=== PATIENT | female | born 1975 | race Two or more races ===

== ENCOUNTER 2021-04-17 10:29 | Outpatient (REF) | payer MEDICAID, OTHER, SELFPAY | END 2021-04-17 10:30 | disposition home or self-care (01) | LOC: HO.MAMMO 10:29 | PROVIDERS: PCP Registered Nurse Community Health; Visit Provider Registered Nurse Community Health | DX: Z13.89 Encounter for screening for other disorder (principal) ==

== ENCOUNTER 2021-05-31 11:10 | Outpatient (REF) | payer MEDICAID, OTHER, SELFPAY ==
--- NOTE | ~2021-05-31 | XR_ITS ---
EXAMINATION: XR FINGER, RIGHT CLINICAL INFORMATION: Pain COMPARISON: None TECHNIQUE: 3 views of the right thumb. FINDINGS: The bones and soft tissues are normal. No fracture. Alignment is anatomic. Joint spaces are maintained. XR/XR finger RT min 2V IMPRESSION: No visible fracture or dislocation seen. The soft tissues are normal.
== END 2021-05-31 11:11 | disposition home or self-care (01) ==
LOC: HO.XRAY 11:10
PROVIDERS: Absent Provider Registered Nurse Community Health; PCP Registered Nurse Community Health; Visit Provider Emergency Medicine
DX: M79.644 Pain in right finger(s) (principal)
CPT/HCPCS: 73140

== ENCOUNTER 2021-07-08 11:18 | Outpatient (REF) | payer MEDICAID, OTHER, SELFPAY ==
--- NOTE | ~2021-07-08 | MM_ITS ---
EXAMINATION: MM SCREENING DIGITAL BREAST TOMOSYNTHESIS, BILATERAL CLINICAL INFORMATION: Screening. Asymptomatic. Prior mammography from [facility] currently unavailable. The lifetime risk of breast cancer based on the Tyrer-Cuzick Model is 7%. COMPARISON: None. TECHNIQUE: Digital breast tomosynthesis is performed in both the craniocaudal and mediolateral oblique views along with computer-aided detection (CAD). Synthesized 2D images are generated from the tomosynthesis. FINDINGS: There are scattered areas of fibroglandular density (ACR BI-RADS breast composition Category b). There are no significant masses, abnormal calcifications, or other abnormalities. There is low right axillary tail node and 2 incidental small intramammary nodes upper outer quadrant right breast mid depth. No lymphadenopathy. The skin contours are smooth. MM/MM tomosynthesis screening BI IMPRESSION: No mammographic evidence of malignancy. ASSESSMENT: BI-RADS 2: Benign RECOMMENDATION: Routine annual mammography screening. This patient's information was entered into a reminder system with a target due date for their next mammogram.
== END 2021-07-08 11:19 | disposition home or self-care (01) ==
LOC: HO.MAMMO 11:18
PROVIDERS: Visit Provider Registered Nurse Community Health
DX: Z12.31 Encounter for screening mammogram for malignant neoplasm of breast (principal)
CPT/HCPCS: 77063; 77067

== ENCOUNTER 2022-09-21 23:48 | Emergency (ER) | payer MEDICAID, OTHER, SELFPAY ==
[2022-09-21 23:51] VITALS: BP 172/88; PULSE 78; RESP 16; TEMP 36.7; O2SAT 99; BMI 32.1
--- NOTE | 2022-09-22 00:24 | MHC.EDTECH ---
This tech obtained labs in triage
[2022-09-22 00:44] LABS: Anion Gap 10 (12-20); Blood Urea Nitrogen 11 mg/dL (9-16); Calcium 9.8 mg/dL (8.4-10.2); Carbon Dioxide 30 mmol/L (22-29); Chloride 104 mmol/L (96-108); Creatinine Clr Calc Pharmacy 80.8; Estimated Glomerular Filt Rate > 60; Glucose Random 123 mg/dL (60-115); Potassium 3.7 mmol/L (3.3-5.1); Sodium 140 mmol/L (135-145)
[2022-09-22 01:17] VITALS: BP 179/97; PULSE 67; RESP 18; TEMP 36.8; O2SAT 97
--- NOTE | 2022-09-22 01:34 | ED.CHESTPAIN ---
HPI - Chest Pain General Chief Complaint: Chest Pain Stated Complaint: Left side arm numbness/ Chest Pain Time Seen by Provider: 09/22/22 01:33 Source: patient and family ([id number]) Mode of arrival: ambulatory Limitations: language barrier (Bermudian speaking only, senior training and development rep used) History of Present Illness HPI narrative: 46-year-old female who presents emergency department for evaluation of left-sided arm pain, chest pain and back pain. Patient states that she was at rest when she had a gradual onset of pain starting around 19:00 hours. The pain initially started her left arm as an electrical sharp feeling. She states she then developed left neck and left-sided chest pain which she had difficulty describing. She states that the tip of her tongue and lips felt numb. She felt lightheaded and dizzy. She denied diaphoresis, shortness of breath, nausea or vomiting. The pain persisted and was moderate to severe in intensity. She took acetaminophen with no relief for pain. She also complains of a diffuse pounding headache associated with photophobia and phonophobia. Related Data Previous Rx's Medication Instructions Recorded lorazepam 0.5 mg tablet (Ativan) 0.5 mg PO TID PRN anxiety #8 tabs 09/22/22 Allergies Allergy/AdvReac Type Severity Reaction Status Date / Time No Known Allergies Allergy Verified 09/22/22 01:58 Review of Systems Review of Systems: Yes all other systems are reviewed and are negative [facility] Past Medical History [facility] Narrative: Past medical history: Diabetes mellitus, hypertension. Social history: She denies tobacco, alcohol and drug use. Social History Social History Smoked in Last 30 Days: No Use of substances other than those prescribed or required for medical reasons: No Advance Directives: No Advance Directives Information Provided: Yes Patient : No Physical Exam Vital Signs: Vital Signs: Last Vital Signs Temp 97.8 F 09/22/22 05:16 Pulse 68 09/22/22 05:16 Resp 14 09/22/22 05:16 BP 114/77 09/22/22 05:16 Pulse Ox 98 09/22/22 05:16 O2 Del Method Room Air 09/22/22 05:16 BMI result Body Mass Index 32.1 Const: Other: Awake, alert, female patient, she appears to be anxious, she answers all questions appropriately HEENT: Head: Yes normal to inspection, Yes normocephalic and Yes atraumatic Ears: external ears normal General nose exam: Normal external nose present Face and sinus: Yes normal facial exam Mouth: Normal oral and palatal mucosa present Throat: Yes posterior oropharynx normal Eyes: General: appearance normal, both eyes and all related structures Pupils: Equal, round and reactive pupils present Neck: Neck: Yes normal visual inspection, Yes no lymphadenopathy, Yes trachea midline and Yes supple Chest: Other: Moderate left chest wall tenderness Resp: Effort & Inspection: normal respiratory effort and able to speak in complete sentences Auscultation: clear to auscultation bilaterally Cardio: Rate: regular rate Rhythm: regular rhythm Heart sounds: S1 normal heart sound present, S2 normal heart sound present and no murmurs GI: Inspection: Yes normal to inspection Palpation (GI): Soft to palpation, nontender and no guarding Auscultation: normal bowel sounds : General: Yes no CVA tenderness Back/Spine/Pelvis: Back: no CVA tenderness Skin: General skin exam: no rashes or lesions noted Neuro: Cranial nerves: Yes CN's II-XII intact bilaterally and Yes Equal, round and reactive pupils present Cognition (Neuro): normal cognition Motor exam (neuro): 5/5 motor strength present throughout Extrem: General: Yes normal to inspection Psych: Appearance: grossly normal Speech and movement: Normal speech and movement present Affect: Anxious affect present Attitude: cooperative Thought process: Normal thought process present Medications Administered Discontinued Medications Generic Name Dose Route Start Last Admin Trade Name Freq PRN Reason Stop Dose Admin Sodium Chloride 1,000 mls @ 999 mls/hr 09/22/22 01:58 09/22/22 03:44 Ns IV 09/22/22 02:58 Infused .Q1H1M STA Infusion Ketorolac Tromethamine 15 mg 09/22/22 01:58 09/22/22 02:40 Ketorolac Tromethamine 15 Mg/Ml Vial IVPUSH 09/22/22 01:59 15 mg ONCE STA Administration Lorazepam 1 mg 09/22/22 01:58 09/22/22 02:40 Lorazepam 2 Mg/Ml Vial IVPUSH 09/22/22 01:59 1 mg STAT STA Administration Medical Decision Making Medical Decision Making MDM Narrative: 46-year-old female who presents emergency department for evaluation of gradual onset of left arm, left neck and left chest discomfort which started at 19:00 hours and came on at rest. Patient states the pain initially started her left arm his electrical sensation, travel to her left neck and chest. She also developed numbness of her tongue and lips with lightheadedness and dizziness. She also complains of a headache associated with phonophobia and photophobia. Vital signs did reveal an elevated blood pressure of 177/88. Patient does appear to be anxious pain. Physical exam did reveal left-sided chest wall tenderness. Following tests were ordered: CBC, BMP, liver panel, troponin, chest x-ray two view, CT scan of the brain, 12 EKG. Patient was treated with Toradol 15 mg IV and Ativan 1 mg IV. I also ordered normal saline x1 L. 0247: Laboratory evaluation was unremarkable, 1st high sensitive troponin I was below detectable limits-repeat is at 03:30 hours. Twelve EKG did reveal poor R-wave progression Q-waves in the inferior leads-there is no old EKG for comparison 0523: The patient's repeat 3 hour high sensitive troponin I was below detectable limits CT scan of the patient's head revealed no acute abnormalities Patient's chest pain is most likely musculoskeletal and there may be a component of anxiety Patient is feeling significantly better. Patient was advised to take Tylenol and ibuprofen for pain, she is also given a prescription for Ativan 1 mg 3 times a day as needed for anxiety. Differential Diagnosis Differential Diagnoses: The differential diagnosis associated with the presentation includes Differential diagnosis includes but is not limited to myocardial infarction, myocardial ischemia, costochondritis, chest wall pain, migraine headache, stroke, anxiety Admission/Observation Consideration of admission/observation: Escalation of care including admission/observation considered Lab Data MDM Lab Attestation statement: I reviewed the patient's lab results. My independent interpretation the patient's laboratory evaluation is as follows: CBC was normal. CMP revealed an elevated bicarb of 30 an elevated glucose of 123. High sensitive troponin I was below detectable limits. 09/22/22 00:23 09/22/22 00:23 Labs: Lab Results 09/22/22 09/22/22 09/22/22 Range/Units 00: 00: 00:23 WBC 7.6 (4.8-10.8) X10*3/uL RBC 4.33 (4.20-5.50) X10*6/uL Hgb 13.2 (12.0-16.0) g/dl Hct 39.4 (37.0-47.0) % MCV 91.0 (80.0-98.0) fL MCH 30.5 (27.0-33.0) pg MCHC 33.5 (31.0-35.0) g/dl RDW 12.1 (11.0-16.0) % Plt Count 239 (160-400) X10*3/uL MPV 10.9 (9.4-12.3) fL Immature Gran % (Auto) 0.3 (0.0-0.4) % Neut % (Auto) 34.4 L (45-73) % Lymph % (Auto) 53.6 H (20-40) % Deuel % (Auto) 6.9 (2-11) % Eos % (Auto) 3.3 (0-4) % Baso % (Auto) 1.5 (0-2) % Lymph # (Auto) 4.1 (1.2-4.9) X10*3/uL Deuel # (Auto) 0.5 (0.1-1.2) X10*3/uL Eos # (Auto) 0.3 (0.0-0.4) X10*3/uL Baso # (Auto) 0.1 (0.0-0.2) X10*3/uL Abs Immat Gran (auto) 0.02 (0.00-0.03) X10*3/uL Absolute Neuts (auto) 2.6 (2.0-8.3) x10*3/uL Absolute Nucleated RBC 0.000 (0.0-0.012) X10*3/uL Nucleated RBC % (auto) 0.0 (0.0-0.2) /100WBC Sodium 140 (135-145) mmol/L Potassium 3.7 (3.3-5.1) mmol/L Chloride 104 (96-108) mmol/L Carbon Dioxide 30 H (22-29) mmol/L Anion Gap 10 L (12-20) BUN 11 (9-16) mg/dL Creatinine 0.80 (0.5-1.4) mg/dL Estim Creat Clear Calc 80.8 Estimated GFR > 60 Random Glucose 123 H (60-115) mg/dL Calcium 9.8 (8.4-10.2) mg/dL Total Bilirubin 0.4 (0.0-1.0) mg/dL Direct Bilirubin 0.1 (0.0-0.5) mg/dL AST 21 (5-31) U/L ALT 22 (0-31) U/L Alkaline Phosphatase 83 (39-117) U/L Troponin I High Sens < 2.7 (<3.5-17.0) ng/L Total Protein 7.4 (6.5-8.0) g/dL Albumin 4.1 (3.5-5.0) g/dL Lipase 23 (8-78) U/L 09/22/22 Range/Units 03:35 WBC (4.8-10.8) X10*3/uL RBC (4.20-5.50) X10*6/uL Hgb (12.0-16.0) g/dl Hct (37.0-47.0) % MCV (80.0-98.0) fL MCH (27.0-33.0) pg MCHC (31.0-35.0) g/dl RDW (11.0-16.0) % Plt Count (160-400) X10*3/uL MPV (9.4-12.3) fL Immature Gran % (Auto) (0.0-0.4) % Neut % (Auto) (45-73) % Lymph % (Auto) (20-40) % Deuel % (Auto) (2-11) % Eos % (Auto) (0-4) % Baso % (Auto) (0-2) % Lymph # (Auto) (1.2-4.9) X10*3/uL Deuel # (Auto) (0.1-1.2) X10*3/uL Eos # (Auto) (0.0-0.4) X10*3/uL Baso # (Auto) (0.0-0.2) X10*3/uL Abs Immat Gran (auto) (0.00-0.03) X10*3/uL Absolute Neuts (auto) (2.0-8.3) x10*3/uL Absolute Nucleated RBC (0.0-0.012) X10*3/uL Nucleated RBC % (auto) (0.0-0.2) /100WBC Sodium (135-145) mmol/L Potassium (3.3-5.1) mmol/L Chloride (96-108) mmol/L Carbon Dioxide (22-29) mmol/L Anion Gap (12-20) BUN (9-16) mg/dL Creatinine (0.5-1.4) mg/dL Estim Creat Clear Calc Estimated GFR Random Glucose (60-115) mg/dL Calcium (8.4-10.2) mg/dL Total Bilirubin (0.0-1.0) mg/dL Direct Bilirubin (0.0-0.5) mg/dL AST (5-31) U/L ALT (0-31) U/L Alkaline Phosphatase (39-117) U/L Troponin I High Sens < 2.7 (<3.5-17.0) ng/L Total Protein (6.5-8.0) g/dL Albumin (3.5-5.0) g/dL Lipase (8-78) U/L Independent Interpretation I performed an independent interpretation of an: EKG Interpretation: My independent interpretation of the patient's 12 EKG done at 23:59 hours is as follows: Normal sinus rhythm rate of 75, normal DE interval, QRS duration QTC interval, flat T-wave in lead 3, Q-wave in 3 and aVF, poor R-wave progression V1 through V3, no ST segment elevation, no ST segment depression, no PVCs, no PACs, no old EKG for comparison Discharge Plan Discharge Clinical Impression: Anxiety Chest pain Qualifiers: Chest pain type: other chest pain Qualified Code(s): R07.89 - Other chest pain Patient Disposition: Home, Self-Care Instructions: Chest Pain (ED), Hyperventilation (ED) Additional Instructions: Your high sensitive troponin I (is marker of heart damage) is was below detectable limits initially and also below detectable limits at 3 hours which is very reassuring and suggests that you have not had a heart attack or heart injury is the cause of your chest pain and arm pain The CT scan of your brain was normal which is also reassuring. At this time, I believe that the pain that your experiencing is secondary to muscle pain Take ibuprofen 200 mg pills, 2 pills every 6 hours as needed for pain or fever. Take Tylenol (acetaminophen) 500 mg pills, 2 pills every 6 hours as needed for pain or fever. Take Ativan (lorazepam) 0.5 mg, 1 pill at night as needed for sleep, or 1 pill 3 times a day as needed for anxiety Follow-up with your doctor in 2 days. Please return to the emergency department if your symptoms get worse or if you develop any symptoms that are concerning to you. Prescriptions: New lorazepam [Ativan] 0.5 mg tablet 0.5 mg PO TID PRN (Reason: anxiety) Qty: 8 0RF Rx Instructions: patient may ask for partial fill Print Language: B[place]udian
--- NOTE | 2022-09-22 01:44 | PC.NURSE ---
Pt aox4 reporting chest pain, 12/23, that began earlier in the day 09/21/22. Pain radiates down the left arm and upper back. Took acetaminophen at home with no relief. NSR on monitor with hr 70. VSS aside from elevated BP. Breaths are even regular and non labored. Abd soft and non tender. Skin warm pink and dry. No apparent distress noted.
[2022-09-22 02:44] VITALS: BP 134/75; PULSE 66; RESP 13; O2SAT 97
[2022-09-22 03:03] LABS: Alanine Aminotransferase 22 U/L (0-31); Albumin Level 4.1 g/dL (3.5-5.0); Alkaline Phosphatase 83 U/L (39-117); Aspartate Amino Transferase 21 U/L (5-31); Bilirubin Direct 0.1 mg/dL (0.0-0.5); Bilirubin Total 0.4 mg/dL (0.0-1.0); Lipase 23 U/L (8-78); Total Protein 7.4 g/dL (6.5-8.0)
--- NOTE | 2022-09-22 03:19 | PC.NURSE ---
Heparin drip started at 12u/kg/hr as ordered per protocol. Tolerating well. Pt reports no pain at this time. No bleeding noted. VSS. Next PTT-HD ordered for 914 today. Pt is aware of plan of care and is waiting for a bed assignment.
--- NOTE | 2022-09-22 03:44 | PC.NURSE ---
IV line removed per pt request.
[2022-09-22 05:16] VITALS: BP 114/77; PULSE 68; RESP 14; TEMP 36.6; O2SAT 98
--- NOTE | 2022-09-22 05:18 | PC.NURSE ---
Pt sleeping/resting at the bedside in no apparent distress. VSS. Reports no pain at this time. Will continue to monitor.
[2022-09-22 05:48] VITALS: BP 127/74; PULSE 67; RESP 17; TEMP 36.7; O2SAT 96
== END 2022-09-22 05:57 | disposition home or self-care (01) ==
PROVIDERS: Emergency Provider Emergency Medicine Emergency Medical Services
DX: R07.89 Other chest pain (principal); R20.0 Anesthesia of skin; F41.1 Generalized anxiety disorder; F43.0 Acute stress reaction; M79.601 Pain in right arm; R51.9 Headache, unspecified; Z79.899 Other long term (current) drug therapy
CPT/HCPCS: 36415; 70450; 71046; 80048; 80076; 83690; 84484; 85025; 93005; 96361; 96374; 96375; 99285; J1885; J2060

== ENCOUNTER → 2022-09-21 23:53 | Outpatient (BNV) | payer MEDICAID, SELFPAY | PROVIDERS: Emergency Provider Emergency Medicine Emergency Medical Services; Visit Provider Internal Medicine Cardiovascular Disease | DX: R07.9 Chest pain, unspecified (principal) | CPT/HCPCS: 93010 ==

== ENCOUNTER 2022-12-22 09:51 | Outpatient (REF) | payer MEDICAID, OTHER, SELFPAY | END 2022-12-22 09:52 | disposition home or self-care (01) | LOC: HO.MAMMO 09:51 | PROVIDERS: Visit Provider Advanced Practice Midwife | DX: Z12.31 Encounter for screening mammogram for malignant neoplasm of breast (principal) | CPT/HCPCS: 77063; 77067 ==

== ENCOUNTER → 2022-12-22 10:00 | Outpatient (BNV) | payer MEDICAID, SELFPAY | PROVIDERS: Visit Provider Radiology Diagnostic Radiology | DX: Z12.31 Encounter for screening mammogram for malignant neoplasm of breast (principal) | CPT/HCPCS: 77063; 77067 ==

== ENCOUNTER 2023-06-17 11:50 | Outpatient (REF) | payer MEDICAID, OTHER, SELFPAY ==
[2023-06-17 13:51] LABS: Cholesterol 238 mg/dL (<200); HDL Cholesterol 48 mg/dL (>40); LDL Cholesterol Calculated 138 mg/dL (<100); Triglycerides 264 mg/dL (<150)
[2023-06-17 14:25] LABS: Creatinine Urine 81.37 mg/dL; Microalbumin Urine < 5.0 mg/L
[2023-06-17 14:34] LABS: Folate 13.4 ng/mL (> or = 4.0); Vitamin B12 513 pg/mL (200-900)
== END 2023-06-17 11:51 | disposition home or self-care (01) ==
LOC: HO.HHCL 11:50
PROVIDERS: Visit Provider Registered Nurse
DX: E11.9 Type 2 diabetes mellitus without complications (principal)
CPT/HCPCS: 36415; 80061; 82043; 82570; 82607; 82746

== ENCOUNTER 2023-12-21 14:29 | Outpatient (REF) | payer MEDICAID, OTHER, SELFPAY ==
--- NOTE | ~2023-12-21 | US_ITS ---
EXAMINATION: US PELVIS CLINICAL INFORMATION: Postmenopausal bleeding COMPARISON: None available. TECHNIQUE: Ultrasound of the pelvis is performed using both transabdominal and transvaginal transducers along with Doppler. Transvaginal imaging is performed due to inadequate visualization transabdominally. FINDINGS: Uterus: The uterus is anteverted and measures 7.8 x 3.3 x 5.0 cm. The double wall endometrial thickness is 0.3 mm. The uterus is smooth in contour and has normal myometrial echogenicity. No visible fibroid. Adnexa: Both ovaries are visualized. There is normal color flow to the adnexa. There is no ovarian torsion. There is no pelvic ascites or fluid collection. Right ovary measures 1.2 x 1.5 x 1.2 cm. Left ovary measures 1.5 x 0.8 x 1.7 cm. US/US pelvic and transvaginal IMPRESSION: Unremarkable pelvic ultrasound. Electronically signed by: Victorino Jennings MD 12/21/2023 04:02 PM EDT
== END 2023-12-21 14:30 | disposition home or self-care (01) ==
LOC: HO.US 14:29
PROVIDERS: PCP Registered Nurse; Visit Provider Advanced Practice Midwife
DX: N95.0 Postmenopausal bleeding (principal)
CPT/HCPCS: 36415; 76830; 76856; 87491; 87591; 87624; 87661; 88175

== ENCOUNTER 2023-12-21 18:23 | Outpatient (REF) | payer MEDICAID, OTHER, SELFPAY ==
[2023-12-22 18:54] LABS: C. trachomatis RNA TMA NOT DETECTED (NOT DETECTED); N. gonorrhoeae RNA TMA NOT DETECTED (NOT DETECTED); Trichomonas (NAAT) NOT DETECTED (NOT DETECTED)
[2024-01-01 10:35] LABS: HPV mRNA E6/E7 Not Detected
[2024-01-01 10:36] LABS: Previous Biopsy Date NONE GIVEN; Thin Prep Source Cervix
== END 2023-12-21 18:24 | disposition home or self-care (01) ==
LOC: HO.HHCLNP 18:23
PROVIDERS: Visit Provider Advanced Practice Midwife
DX: N95.0 Postmenopausal bleeding (principal)
CPT/HCPCS: 36415; 87491; 87591; 87624; 87661; 88175

== ENCOUNTER 2023-12-29 09:09 | Outpatient (REF) | payer MEDICAID, OTHER, SELFPAY ==
--- NOTE | ~2023-12-29 | MM_ITS ---
EXAMINATION: MM SCREENING DIGITAL BREAST TOMOSYNTHESIS, BILATERAL CLINICAL INFORMATION: Screening. Asymptomatic. COMPARISON: Mammography: Comparison is made with available priors TECHNIQUE: Digital breast mammography with tomosynthesis is performed in both the craniocaudal and mediolateral oblique views along with computer-aided detection (CAD). FINDINGS: There are scattered areas of fibroglandular density (ACR BI-RADS breast composition Category b). There are no significant masses, abnormal calcifications, or other abnormalities. MM/MM tomosynthesis screening BI IMPRESSION: No mammographic evidence of malignancy. ASSESSMENT: BI-RADS BI-RADS 1 - Negative RECOMMENDATION: Routine annual mammography screening. 1 year F/U This examination should not preclude the clinical evaluation of a suspicious palpable abnormality. This patient's information was entered into a reminder system with a target due date for their next mammogram. Electronically signed by: Kathe Bella DO 01/11/2024 05:22 PM EDT
== END 2023-12-29 09:10 | disposition home or self-care (01) ==
LOC: HO.MAMMO 09:09
PROVIDERS: PCP Registered Nurse; Visit Provider Advanced Practice Midwife
DX: Z12.31 Encounter for screening mammogram for malignant neoplasm of breast (principal)
CPT/HCPCS: 77063; 77067

== ENCOUNTER → 2023-12-29 09:45 | Outpatient (BNV) | payer SELFPAY | PROVIDERS: PCP Registered Nurse; Visit Provider Internal Medicine | DX: Z12.31 Encounter for screening mammogram for malignant neoplasm of breast (principal) | CPT/HCPCS: 77063; 77067 ==

== ENCOUNTER 2024-05-30 11:31 | Outpatient (REF) | payer SELFPAY ==
--- OUTSIDE RECORDS SUMMARY | 2024-05-30 13:43 | XMS_ITS | Clinical Summary ---
Author Organization [facility] Address [address] [place] [address] Care Team Providers Care Bus Washer Name Role Phone Magda Dupree Primary Care Provider [phone] Allergies No known active allergies Medications LISINOPRIL ORAL Take 10 mg by mouth once a day. Active metformin HCl (METFORMIN ORAL) Take 1,000 mg by mouth 2 times a day. Active cholecalciferol (VITAMIN D3) 2,000 unit tablet Take 1 tablet by mouth once a day. Active Active Problems No known active problems Encounters Date Type Department Care Team Description 04/14/2024 Telephone [facility] G[facility]ology [facility] [address] [place] [address] Highway Research Engineer: Miguel Bailey MD 04/13/2024 3:30 PM EST Telehealth [facility] Women's [facility] [place] [address] [place] [address] Highway Research Engineer: Eliz Mock MD Postoperative examination (Primary Dx); Urinary, incontinence, stress female 04/12/2024 7:30 AM EST - 04/12/2024 8:15 AM EST Surgery [facility] Endoscopy [address] [place] [address] Miguel Hernandez MD COLONOSCOPY SCREENING, LOW RISK WITH POSSIBLE MODERATE SEDATION 04/12/2024 7:11 AM EST - 04/12/2024 9:04 AM EST Hospital Encounter [facility] Endoscopy [address] [place] [address] Miguel Hernandez MD Screen for colon cancer Discharge Disposition: Home or Self Care () 03/22/2024 Prep for Case [facility] [address] [place] [address] [address] Research Engineer: Miguel Bailey MD 03/13/2024 Telephone [facility] Women[facility] Care [address] [place] [address] [address] [address] Research Engineer: Aimee Olmedo MD 03/08/2024 7:25 AM EST Anesthesia Event [facility] Operating Room [address] [place] [address] Chula Bo MD Jagannathan, Dinesh Kumar, MD 03/08/2024 7:15 AM EST - 03/08/2024 8:55 AM EST Surgery [facility] Operating Room [address] [place] [address] Oliva Armenta MD HYSTEROSCOPY WITH ENDOMETRIAL SAMPLING AND/OR POLYPECTOMY, POSSIBLE DILATION AND CURETTAGE, WITH LYSIS OF INTRAUTERINE ADHESION [15921 (CPT??)] 03/08/2024 5:11 AM EST - 03/08/2024 9:29 AM EST Hospital Encounter [facility] Operating Room [address] [place] [address] Oliva Armenta MD Postmenopausal bleeding Discharge Disposition: Home or Self Care () from Last 3 Months Family History Medical History Relation Name Comments Cancer Neg Hx Social History Tobacco Use Types Packs/Day Years Used Date Smoking Tobacco: Never Smokeless Tobacco: Never Alcohol Use Standard Drinks/Week Comments Never 0 (1 standard drink = 0.6 oz pur e alcohol) Comments Unknown Sex and Gender Information Value Date Recorded Sex Assigned at Female 01/21/2024 9:40 AM EST Legal Sex Female 3:17 PM EDT Gender Identity Not on file Sexual Orientation Not on file Last Filed Vital Signs Vital Sign Reading Time Taken Comments Blood Pressure 136/79 04/12/2024 8:50 AM EST Pulse 66 04/12/2024 8:50 AM EST Temperature 36.4 ??C (97.5 ??F) 04/12/2024 7:45 AM ES T Respiratory Rate 12 04/12/2024 8:50 AM EST Oxygen Saturation 99% 04/12/2024 8:45 AM EST Inhaled Oxygen Concentration - - Weight 81.6 kg (180 lb) 04/12/2024 7:45 AM EST Height 160 cm (5' 3 ) 04/12/2024 7:45 AM EST Body Mass Index 31.89 04/12/2024 7:45 AM EST Plan of Treatment Upcoming Encounters Date Type Department Care Team (Late st Contact Info) Description 07/15/2024 9:15 AM EDT Office Visit [facility] Urogynecology Clinic [address] [address] [address] Research Engineer: Gato Sellers MD [address] [facility] CRAFT RECRUITER- [place] [address] Health Maintenance Due Date Last Done Comments Cervical Cancer Screening 1975 Cologuard 1975 HPV and Pap Smear 1973 Hepatitis C Screening 1975 Pap Smear 1973 Sigmoidoscopy 1973 Hepatitis B Vaccines (1 of 3 - 19+ 3-dose series) 1992 Mammogram 2013 FOBT / Fit Test 05/20/2023 05/19/2022 COVID-19 Vaccine (2 - season) 2023 Influenza Vaccine (#1) 2023 12/26/2021, 2020 Zoster Vaccines (1 of 2) 11/24/2023 Alcohol/Substance Use Screening 03/16/2024 Depression Screening and Follow-Up 03/16/2024 Social Drivers of Health Annual Screening 03/16/2024 DTaP,Tdap,and Td Vaccines (2 - Td or Tdap) 01/07/2031 01/07/2021 Colon Cancer Screening 04/12/2034 Colonoscopy 04/12/2034 04/12/2024 RSV Vaccine (60+ years old a nd patients) (1 - 1-dose 75+ series) 2048 HIV Screening Completed 01/18/2021 Pneumococcal Vaccine: 50+ Years Completed 3, 07/26/2021 Procedures * Due to [facility] law, this organization might not be sharing negative HIV tests. Procedure Name Priority Date/Time Associated Diagnosis Comments TISSUE EXAM Routine 04/12/2024 8:13 AM EST Screen for colon cancer COLONOSCOPY SCREENING, LOW RISK WITH POSSIBLE MODERATE SEDATION 04/12/2024 7:53 AM EST Screen for colon cancer COLONOSCOPY 04/12/2024 POCT GLUCOSE Routine 03/08/2024 8:13 AM EST TISSUE EXAM Routine 03/08/2024 7:49 AM EST Postmenopausal bleeding CT HYSTEROSCOPY,LYSIS ADHESIONS 03/08/2024 7:07 AM EST Postmenopausal bleeding Special Needs omni POCT HCG, URINE Routine 03/08/2024 6:10 AM EST POCT GLUCOSE Routine 03/08/2024 6:08 AM EST from Last 3 Months Results * Due to [facility] law, this organization might not be sharing negative HIV tests. * Tissue Exam (04/12/2024 8:13 AM EST) Only the most recent of2 resultswithin the time period is included. Final Diagnosis Colon (Transverse), Polypectomy: - Colonic mucosa, within normal limits. - Levels examined. [facility] 04/13/2024 12:28 PM EST [facility] at 1228 EST Clinical History Pre-op diagnosis: Screen for colon cancer [Z12.11] [facility] 04/13/2024 12:28 PM EST [facility] Gross Description 1. Large Intestine, Transverse Colon Received in formalin, labeled the patient's name, MRN, date of , and polyp from transverse colon , is a mckeon, irregular soft tissue fragment (0.9 x 0.5 x 0.2 cm), which is filtered and entirely submitted in cassette 1A. [facility] MANUAL 04/13/2024 12:28 PM EST [employer] Monitoring [facility] Gross Description User Grossing complete by Renetta Cook on 04/12/2024 11:[address] [facility] MANUAL 04/13/2024 12:28 PM EST [facility] Embedded Images [facility] MANUAL 04/13/2024 12:28 PM EST [facility] Picateers [facility] Resulting Agency Case was signed out at [facility], Department of Pathology, [employer] [address] CLIA [id number] [facility] MANUAL 04/13/2024 12:[address] [facility] CENTERGuidance SoftwareIL [employer] [facility] Report Header Surgical Pathology Report ? Case: [id number] ? Authorizing Provider: ??Miguel Hernandez MD ?Collected: ? 04/12/2024 0813 ? Ordering Location: ? [facility] ? Received: ?04/12/2024 1126 ? [place] ? Endoscopy ? Pathologist: ? Ignacio Contreras MD ? Specimen: ?Large Intestine, Transverse Colon, Polyp from Transverse Colon ? 04/13/2024 12:[address] [facility] CENTERSaygusCLEVEL[facility] Picateers [facility] ProVation Case Yes [facility] 04/13/2024 12:28 PM EST [facility] Picateers [facility] SURGICAL CSN Component [id number] [facility] MANUAL 04/13/2024 12:28 PM EST [facility] Picateers [facility] Polyp Entire transverse colon / Unknown 04/12/2024 8:13 AM EST 04/12/2024 11:26 AM EST Comment:Pre-op diagnosis: Screen for colon cancer [Z12.11] us Miguel Hernandez MD LAB PATHOLOGY/CYTOLOGY OR DERABLES Final Result [facility] [address] [place] [address], [facility] [address] [place] [address] * COLONOSCOPY (04/12/2024) Narrative Procedure Note Miguel Hernandez MD - 04/12/2024 7:21 AM EST [facility] Gastroenterology Patient Name: Vilma Gould Procedure Date: 04/12/2024 7:21AM Date of : 1975 Admit Type: Outpatient Age: 48 Room: [place] [address] Gender: Female Note Status: Finalized Attending MD: Miguel Hernandez MD Procedure: Colonoscopy Indications: Screening for colorectal malignant neoplasm Comorbidities Providers: Miguel Hernandez MD Referring MD: Magda Dupree (Referring MD) Requesting Provider: Medicines: Midazolam 5 mg IV, Fentanyl 100 micrograms IV Complications: No immediate complications. Estimated Blood Loss: Estimated blood loss was minimal. Procedure: Pre-Anesthesia Assessment: - Prior to the procedure, a History and Physicalwas performed, and patient medications and allergieswere reviewed. The patient is competent. The risks and benefits of the procedure and the sedation optionsand risks were discussed with the patient. Allquestions were answered and informed consent was obtained. Patient identification and proposed procedure were verified by the physician, the nurse and the property technician in the procedure room. Mental Status Examination: alert and oriented. AirwayExamination: normal oropharyngeal airway and neck mobility. Respiratory Examination: clear to auscultation. CV Examination: normal. Prophylactic Antibiotics: The patient does not require prophylactic antibiotics. Prior Anticoagulants: The patient has taken no anticoagulant or antiplatelet agents. ASA Grade Assessment: II - A patient with mild systemicdisease. After reviewing the risks and benefits, the patient was deemed in satisfactory condition to undergo the procedure. The anesthesia plan was to use moderate sedation / analgesia (conscious sedation).Immediately prior to administration of medications, the patient was re-assessed for adequacy to receive sedatives.The heart rate, respiratory rate, oxygen saturations, blood pressure, adequacy of pulmonary ventilation,and response to care were monitored throughout the procedure. The physical status of the patient was re-assessed after the procedure. After I obtained informed consent, the scope was passed under direct vision. Throughout theprocedure, the patient's blood pressure, pulse, and oxygen saturations were monitored continuously. The Colonoscope was introduced through the anus and advanced to the cecum, identified by appendiceal orifice and ileocecal valve. The colonoscopy was performed without difficulty. The patient tolerated the procedure well. The quality of the bowel preparation was evaluated using the BBPS (BostonBowel Preparation Scale) with scores of: Right Colon = 2 (minor amount of residual staining, small fragmentsof stool and/or opaque liquid, but mucosa seen well), Transverse Colon = 2 (minor amount of residual staining, small fragments of stool and/or opaque liquid, but mucosa seen well) and Left Colon = 2 (minor amount of residual staining, small fragmentsof stool and/or opaque liquid, but mucosa seen well).The total BBPS score equals 6. Adequate prep. The ileocecal valve, appendiceal orifice, and rectumwere photographed. The bowel preparation used wasGoLYTELY via split dose instruction. Endocuff was usedduring this exam. Findings: The perianal and digital rectal examinations were normal. A 4 mm polyp was found in the transverse colon. The polyp was Jaylin classification Is (protruding, sessile). The polyp was removed with a cold snare. Resection and retrieval were complete. The retroflexed view of the distal rectum and anal verge was normaland showed no anal or rectal abnormalities. Impression: - One 4 mm polyp in the transverse colon, removedwith a cold snare. Resected and retrieved. - The distal rectum and anal verge are normal on retroflexion view. Recommendation: - - Discharge patient to home. - The patient will be observed post-procedure,until all discharge criteria are met. - Patient has a contact number available for emergencies. The signs and symptoms of potential delayed complications were discussed with thepatient. Return to normal activities tomorrow. Written discharge instructions were provided to thepatient. - Resume previous diet. - We are awaiting your pathology results - Dr. Hernandez or one of his staff memebers willcall you within 1-2 weeks to inform you of the pathology results - The recommendation interval for your next repeat colonoscopy may change depending on the pathology results. - If the patient does not hear from the GI teamwithin the next 4 weeks about pathology results, please contact the GI clinic. - Repeat colonoscopy in 5 years for surveillance. Miguel Hernandez MD 04/12/2024 8:26:05 AM This report has been signed electronically. Number of Addenda: 0 Note Initiated On: 04/12/2024 7:21 AM us Miguel Hernandez MD PROVATION PROCEDURES Padmaja l Result * (ABNORMAL) POCT Glucose, interfaced (03/08/2024 8:13 AM EST) Only the most recent of2 resultswithin the time period is included. Glucose, POCT 121(H) 70 - 99 mg/dL 03/08/2024 8:15 AM EST [facility] Comment: The taxi dancer has not determined the efficacy of this test in Critically ill patients. ??[facility] defines Critically ill patients for the purpose of blood glucose monitoring (BGM) by glucometer, as patients meeting one or more of the following criteria: Hypotension- non-ICU patients (systolic blood pressure Less than 90 mmHg) due to shock Hypotension -ICU patients ??(Mean Arterial Pressure (MAP) <60 mmHg or systolic blood pressure < 90 mmHg due to shock Patients receiving Vasopressors (phenylephrine, vasopressin or norepinephrine) Anasarca In all locations, BGM test results should not be relied upon in the above situations, unless these results confirmed with lab-based glucose values. Blood 03/08/2024 8:13 AM EST 03/08/2024 8:15 AM EST us Oliva Armenta MD LAB POCT ORDERABLES - DE VICE Final Result [facility] [address] [place] [address], * POCT HCG, Urine, non-interfaced (03/08/2024 6:10 AM EST) Control band present? Yes Background Clear? Yes Preg Test, Ur Negative Negative Urine 03/08/2024 6:10 AM EST Oliva Armenta MD POINT OF CARE TEST ORDER NEDA Final Result from Last 3 Months Insurance [employer] Member Subscriber Plan / Payer (Ef fective 2021-Present) Name:Vilma Villanueva Relation to Subscriber:Self Name:Vilma Villanueva Payer ID:[id number] Group ID:Not on file Type:Not on file Address: [address]/FREE CARE [facility] Advance Directives * Full Code (Latest Code Status on File) Date Activated Date Inactivated Comments 03/08/2024 5:33 AM 03/08/2024 11:29 AM Healthcare Agents on File Name Relationship Healthcare Agent [facility] Communication Adolfo Lee Son Next of Kin Care Teams Bus Washer Relationship Specialty Start Date End Date [facility] PCP - General 11/12/22
--- OUTSIDE RECORDS SUMMARY | 2024-05-30 13:43 | XMS_ITS | Encounter Summary ---
Author Organization [employer] Address [address] [facility] [place] [address] [place] [address] Care Team Providers Care Dispatcher Street Department Name Role Phone [facility] Primary Care Provider [phone] Encounter Details Date Type Department Care Team ([facility] Contact Info) Description 04/12/2024 Orders Only [facility] [address] [place], [place] [id number] ProviderZuleyma MD Social History Tobacco Use Types Packs/Day Years Used Date Smoking Tobacco: Never Passive Smoke Exposure: Never Smokeless Tobacco: Never Alcohol Use Standard Drinks/Week Comments Never 0 (1 standard drink = 0.6 oz pur e alcohol) Alcohol Answer Date Recorded Frequency of Alcohol Consumption Not on file 06/17/2023 Average Number of Drinks Not on file 024 Frequency of Binge Drinking Not on file 05/2023 Score 0 06/17/2023 Depression Answer Date Recorded Patient Health Questionnaire-9 Score 0 11/25/2023 Patient Health Questionnaire-9 Score 0 11/25/2023 Last PHQ-9: Questionnaire Data Not on file 0 11/25/2023 Housing Stability Answer Date Recorded What is your housing situation today? I have chel alexander 01/04/[address] you li ve. Do you have problems with any of the following? None of the above 01/04/2023 Food Insecurity Answer Date Recorded Within the past 12 months, y ou worried that your food would run out before you got money to buy more: Never True 01/04/2023 Within the past 12 months,th e food you bought just didn't last and you didn't have enough money to get more: Never True Transportation Answer Date Recorded In the past 12 months, has l ack of transportation kept you from medical appts, meetings, work or from getting things needed for daily living? No 01/04/2023 Utilities Answer Date Recorded In the past 12 months, has t he electric, gas, oil or water company threatened to shut off services in your home? No 01/04/2023 Depression Answer Date Recorded Patient Health Questionnaire-2 Score 0 11/25/2023 Comments No Sex and Gender Information Value Date Recorded Sex Assigned at Female 01/13/2022 10:39 AM EDT Legal Sex Female 10:39 AM EDT Gender Identity Female 01/13/2022 10:39 AM EDT Sexual Orientation Don't know 01/13/2022 10 :39 AM EDT documented as of this encounter Plan of Treatment Upcoming Encounters Date Type Department Care Team (Late st Contact Info) Description 08/09/2024 8:00 AM EDT Office Visit [facility] ADULT DENTAL [address] [place] [address] Ephraim, Gretchen [address] [place] [address] documented as of this encounter Procedures Procedure Name Priority Date/Time Associated Diagnosis Comments COLONOSCOPY Routine 04/12/2024 1:14 PM EST documented in this encounter Results * Colonoscopy (04/12/2024 1:14 PM EST) Anatomical Region Laterality Modality Endoscopy us Historical Provider MD ENDOSCOPY PROCEDURE ORDER NEDA Final Result documented in this encounter Visit Diagnoses Not on filedocumented in this encounter Additional Health Concerns Assessment Noted Time PHQ-9 Depression Total Score: 0 11/25/19 24 9:24 AM EDT documented as of this encounter Care Teams Dispatcher Street Department Relationship Specialty Start Date End Date Magda Dupree FNP [address] [place] [address] PCP - General Family Medicine 11/13/21 documented as of this encounter
--- OUTSIDE RECORDS SUMMARY | 2024-05-30 13:43 | XMS_ITS | Encounter Summary ---
Author Organization [employer] Address [address] [facility] [address], [place] [address] Care Team Providers Care Windows Support Engineer Name Role Phone Magda Dupree Primary Care Provider [phone] Encounter Details Date Type Department Care Team (Late st Contact Info) Description 02/21/2022 [facility] Only [facility] [address] [place] [address] Ema Coughlin RN [address] [place] [address] Social History Tobacco Use Types Packs/Day Years Used Date Smoking Tobacco: Never Assessed Comments Unknown Sex and Gender Information Value [...] Description 08/09/2024 8:00 AM EDT Office Visit [facility] ADULT DENT[facility] [address] [place] [address] Gretchen Ye [address] [place] [address] documented as of this encounter Visit Diagnoses Not on filedocumented in this encounter Care Teams Windows Support Engineer Relationship Specialty Start Date End Date Magda Dupree FNP [address] [place] [address] PCP - General Family Medicine 11/13/21 documented as of this encounter
--- OUTSIDE RECORDS SUMMARY | 2024-05-30 13:43 | XMS_ITS | Encounter Summary ---
Author Organization [employer] Address [address] [facility] [address] [place] [address] Care Team Providers Care Source Water Protection Specialist Name Role Phone Magda Dupree TDP DISPLAYS ANALYST Primary Care Provider [phone] Encounter Details Date Type Department Care Team (Late Contact Info) Description 07/04/2022 Abstract [facility] ADULT DENTAL [address] [place] [address] Gretchen Ye [address] [place] [address] Social History Tobacco Use Types Packs/Day Years [...] Don't know 01/13/2022 10 :39 AM EDT COVID-19 Exposure Response Date Recorded In the last 10 days, have yo u been in contact with someone who was confirmed or suspected to have Coronavirus/COVID-19? No / Unsure 06/24/2022 2:14 PM EDT documented as of this encounter Plan of Treatment Upcoming Encounters Date Type Department Care Team (Late Contact Info) Description 08/09/2024 8:00 AM EDT Office Visit [facility] ADULT DENTAL [address] [place], [place] [phone] Gretchen Ye [address] [place] [address] documented as of this encounter Visit Diagnoses Not on filedocumented in this encounter Additional Health Concerns Assessment Noted Time PHQ-9 Depression Total Score: 0 05/01/19 23 2:16 PM EST documented as of this encounter Care Teams Source Water Protection Specialist Relationship Specialty Start Date End Date Magda Dupree FNP [address] [place] [address] PCP - General Family Medicine 11/13/21 documented as of this encounter
--- OUTSIDE RECORDS SUMMARY | 2024-05-30 13:43 | XMS_ITS | Encounter Summary ---
Author Organization [employer] Address [address] [facility] [address] [place] [address] Care Team Providers Care Warranty Coordinator Name Role Phone Magda Dupree PAINT TECHNICIAN Primary Care Provider [phone] Encounter Details Date Type Department Care Team ([facility] Contact Info) Description 07/18/2022 Abstract [facility] ADULT DENTAL [address] [place] [address] Gretchen Ye [address] [place] [address] Social History Tobacco Use Types Packs/Day Years [...] Upcoming Encounters Date Type Department Care Team ([facility] Contact Info) Description 08/09/2024 8:00 AM EDT Office Visit [facility] ADULT DENTAL [address] [place], [place] [phone] Gretchen Ye [address] [place] [address] documented as of this encounter Visit Diagnoses Not on filedocumented in this encounter Additional Health Concerns Assessment Noted Time PHQ-9 Depression Total Score: 0 05/01/19 23 2:16 PM EST documented as of this encounter Care Teams Warranty Coordinator Relationship Specialty Start Date End Date Magda Dupree FNP [address] [place] [address] PCP - General Family Medicine 11/13/21 documented as of this encounter
--- OUTSIDE RECORDS SUMMARY | 2024-05-30 13:43 | XMS_ITS | Referral Summary ---
Author Organization [facility] Address [address] [place] [address] Care Team Providers Care Marine Driller Name Role Phone Magda Dupree Primary Care Provider [phone] Encounters Date Type Department Care Team Description 04/14/2024 Telephone [facility] [address] [place] [phone] Permastone Installer: Miguel Bailey MD 04/13/2024 3:30 PM EST Telehealth [facility] [address] [place] [address] Permastone Installer: Eliz Mock MD Postoperative examination (Primary Dx); Urinary, incontinence, stress female 04/12/2024 7:30 AM EST - 04/12/2024 8:15 AM EST Surgery [facility] [address] [place] [phone] Miguel Hernandez MD COLONOSCOPY SCREENING, LOW RISK WITH POSSIBLE MODERATE SEDATION 04/12/2024 7:11 AM EST - 04/12/2024 9:04 AM EST Hospital Encounter [facility] [address] [place] [address] Miguel Hernandez MD Screen for colon cancer Discharge Disposition: Home or Self Care () 03/22/2024 Prep for Case [facility] [address] [place] [phone] Permastone Installer: Miguel Bailey MD 03/13/2024 Telephone [facility] [address] [place] [address] Permastone Installer: Aimee Olmedo MD 03/08/2024 7:15 AM EST - 03/08/2024 8:55 AM EST Surgery [facility] Operating Room [address] [place] [phone] Oliva Armenta MD HYSTEROSCOPY WITH ENDOMETRIAL SAMPLING AND/OR POLYPECTOMY, POSSIBLE DILATION AND CURETTAGE, WITH LYSIS OF INTRAUTERINE ADHESION [42106 (CPT??)] 03/08/2024 7:25 AM EST Anesthesia Event [facility] Operating Room [address] [place] [phone] Chula Bo MD Jagannathan, Dinesh Kumar, MD 03/08/2024 5:11 AM EST - 03/08/2024 9:29 AM EST Hospital Encounter [facility] Operating Room [address] [place] [address] Oliva Armenta MD Postmenopausal bleeding Discharge Disposition: Home or Self Care () from Last 3 Months Allergies No known active allergies Medications LISINOPRIL ORAL Take 10 mg by mouth once a day. Active metformin HCl (METFORMIN ORAL) Take 1,000 mg by mouth 2 times a day. Active cholecalciferol (VITAMIN D3) 2,000 unit tablet Take 1 tablet by mouth once a day. Active Active Problems No known active problems Social History Tobacco Use Types Packs/Day Years [...] Description 07/15/2024 9:15 AM EDT Office Visit [facility] [address] [place] [address] Permastone Installer: Gato Sellers MD [address] [place] [address] WOUND TREATMENT RN- [place] [address] Procedures * Due to [place] Tip[place] law, this organization might not be sharing negative HIV tests. Procedure Name Priority Date/Time Associated Diagnosis Comments TISSUE EXAM Routine 04/12/2024 8:13 AM EST Screen for colon cancer COLONOSCOPY SCREENING, LOW RISK WITH POSSIBLE MODERATE SEDATION 04/12/2024 7:53 AM EST Screen for colon cancer COLONOSCOPY 04/12/2024 POCT GLUCOSE Routine 03/08/2024 8:13 AM EST TISSUE EXAM Routine 03/08/2024 7:49 AM EST Postmenopausal bleeding MT HYSTEROSCOPY,LYSIS ADHESIONS 03/08/2024 7:07 AM EST Postmenopausal bleeding Special Needs omni POCT HCG, URINE Routine 03/08/2024 6:10 AM EST POCT GLUCOSE Routine 03/08/2024 6:08 AM EST from Last 3 Months Results * Due to [place] state law, this organization might not be sharing negative HIV tests. * Tissue Exam (04/12/2024 8:13 AM EST) Only the most recent of2 resultswithin the time period is included. Final Diagnosis Colon (Transverse), Polypectomy: - Colonic mucosa, within normal limits. - Levels examined. [facility] MANUAL 04/13/2024 12:28 PM EST [facility] at 1228 EST Clinical History Pre-op diagnosis: Screen for colon cancer [Z12.11] [facility] MANUAL 04/13/2024 12:28 PM EST [facility] Gross Description 1. Large Intestine, Transverse Colon Received in formalin, labeled the patient's name, MRN, date of , and polyp from transverse colon , is a mckeon, irregular soft tissue fragment (0.9 x 0.5 x 0.2 cm), which is filtered and entirely submitted in cassette 1A. [facility] MANUAL 04/13/2024 12:28 PM EST [facility] Gross Description User Grossing complete by Renetta Cook on 04/12/2024 11:51 AM [facility] MANUAL 04/13/2024 12:28 PM EST [facility] Embedded Images [facility] MANUAL 04/13/2024 12:28 PM EST [facility] Resulting Agency Case was signed out at [facility], Department of Pathology, [employer] 3 SHERRYIA [id number] [facility] MANUAL 04/13/2024 12:28 PM EST [facility] Report Header Surgical Pathology Report ? Case: [id number] ? Authorizing Provider: ??Miguel Hernandez MD ?Collected: ? 04/12/202413 ? Ordering Location: ? [facility] ? Received: ?04/12/2024 1126 ? [facility] ? Endoscopy ? Pathologist: ? Ignacio Contreras MD ? Specimen: ?Large Intestine, Transverse Colon, Polyp from Transverse Colon ? 04/13/2024 12:28 PM EST [facility] ProVation Case Yes [facility] MANUAL 04/13/2024 12:28 PM EST [facility] SURGICAL CSN Component [id number] [facility] MANUAL 04/13/2024 12:28 PM EST [facility] Polyp Entire transverse colon / Unknown 04/12/2024 8:13 AM EST 04/12/2024 11:26 AM EST Comment:Pre-op diagnosis: Screen for colon cancer [Z12.11] us Miguel Hernandez MD LAB PATHOLOGY/CYTOLOGY OR DERABLES Final Result [facility] [address] [place] [address], [facility] [address] [place] [address], * COLONOSCOPY (04/12/2024) Narrative Procedure Note Miguel Hernandez MD - 04/12/2024 7:21 AM EST [facility] Gastroenterology Patient Name: Vilma Garcia Luis Fernando Procedure Date: 04/12/2024 7:21AM Date of : 1975 Admit Type: Outpatient Age: 48 Room: [place] [address] Gender: Female Note Status: Finalized Attending MD: [...] by the physician, the nurse and the mail carrier technician in the procedure room. Mental Status [...] - 99 mg/dL 03/08/2024 8:15 AM EST [facility], POC Comment: The digital solution architect has not determined the efficacy of this test in Critically ill patients. ??[facility] defines Critically ill patients for the [...] 8:13 AM EST 03/08/2024 8:15 AM EST Oliva Armenta MD LAB POCT ORDERABLES - DE VICE Final Result [facility], POC [address] [place] [address], [place] * POCT HCG, Urine, non-interfaced (03/08/2024 6:10 AM EST) Control band present? Yes Background Clear? Yes Preg Test, Ur Negative Negative Urine 03/08/2024 6:10 AM EST Oliva Armenta MD POINT OF CARE TEST ORDER NEDA Final Result from Last 3 Months Insurance [facility] HS/FREE CARE [place] HSNO/FREE CARE Advance Directives * Full Code (Latest Code Status on File) Date Activated Date Inactivated Comments 03/08/2024 5:33 AM 03/08/2024 11:29 AM Healthcare Agents on File Name Relationship Healthcare Agent Relationshi p Communication Adolfo Muniz Next of Kin Care Teams Marine Driller Relationship Specialty Start Date End Date [facility] PCP - General 11/12/22
--- OUTSIDE RECORDS SUMMARY | 2024-05-30 13:43 | XMS_ITS | Encounter Summary ---
Author Organization [employer] Address [address] [place] [address] Care Team Providers Care Belly Roller Name Role Phone Magda Dupree [facility] Primary Care Provider [phone] Encounter Details Date Type Department Care Team (Latest Contact Info) Description 05/30/2024 Travel Social History Tobacco Use Types Packs/Day Years [...] Date Recorded Patient Health Questionnaire-9 Score 0 05/30/2024 Patient Health Questionnaire-9 Score 0 05/30/2024 Last PHQ-9: Questionnaire Data Not on file 0 05/30/2024 Housing Stability Answer Date Recorded What is [...] Date Recorded Patient Health Questionnaire-2 Score 0 05/30/2024 Comments No Sex and Gender Information Value [...] Description 08/09/2024 8:00 AM EDT Office Visit [facility] [address] [place] [address] Ephraim, Gretchen [address] [place] [address] documented as of this encounter Visit Diagnoses Not on filedocumented in this encounter Additional Health Concerns Assessment Noted Time PHQ-9 Depression Total Score: 0 05/31/19 25 10:51 AM EDT documented as of this encounter Care Teams Belly Roller Relationship Specialty Start Date End Date Magda Dupree FNP [address] [place] [address] PCP - General Family Medicine 11/13/21 documented as of this encounter
--- OUTSIDE RECORDS SUMMARY | 2024-05-30 13:43 | XMS_ITS | Encounter Summary ---
Author Organization [employer] Address [address] [place] [address] Care Team Providers Care Grizzly Worker Name Role Phone [facility] Primary Care Provider [phone] Reason for Visit * Reason Comments Follow-up Encounter Details Date Type Department Care Team ([facility] Contact Info) Description 05/30/2024 10:30 AM EDT Office Visit [facility] [address] [place], [place] [phone] [facility] [address] [place] [address] Healthcare maintenance (Primary Dx); Diabetes mellitus without complication (CMS/HCC); Need for vaccination Social History Tobacco Use Types Packs/Day Years Used Date Smoking Tobacco: Never Passive Smoke Exposure: Never Smokeless Tobacco: Never Tobacco Cessation:Counseling Given: Not Answered Alcohol Use Standard Drinks/Week Comments Never 0 [...] AM EDT documented as of this encounter Last Filed Vital Signs Vital Sign Reading Time Taken Comments Blood Pressure 138/84 05/30/2024 10:51 AM EDT Pulse 78 05/30/2024 10:51 AM EDT Temperature 36.6 ??C (97.8 ??F) 05/30/2024 1 0:51 AM EDT Respiratory Rate 20 05/30/2024 10:5 1 AM EDT Oxygen Saturation 100% 05/30/2024 10: 51 AM EDT Inhaled Oxygen Concentration - - Weight 79.3 kg (174 lb 12.8 oz) 025 10:51 AM EDT Height 160 cm (5' 3 ) 05/30/2024 10:51 AM EDT Body Mass Index 30.96 05/30/2024 10:51 AM EDT documented in this encounter Plan of Treatment Upcoming Encounters Date Type Department Care Team (Late st Contact Info) Description 08/09/2024 8:00 AM EDT Office Visit [facility] [address] [place] [address] Gretchen Ye [address] [place] [address] Scheduled Orders Name Type Priority Associated Diagnoses Orde r Schedule Measles, Mumps, and Rubella (MMR) Antibodies??(IgG) Panel, Immune Status Lab Routine Healthcare maintenance Expected: 05/30/2024 (Approximate), Expires: 05/30/2025 Varicella Zoster Antibody, IgG Lab Routine Healthcare maintenance Expected: 05/30/2024 (Approximate), Expires: 05/30/2025 Hepatitis A,B,C Profile Lab Routine Healthcare maintenance Expected: 05/30/2024, Expires: 05/30/2025 Basic Metabolic Panel Lab Routine Healthcare maintenance Expected: 05/30/2024 (Approximate), Expires: 05/30/2025 Vitamin B12/Folate, Serum Panel Lab Routine Diabetes mellitus without complication ([facility]/HCC) Expected: 05/30/2024, Expires: 05/30/2025 documented as of this encounter Procedures Procedure Name Priority Date/Time Associated Diagnosis Comments POCT GLYCATED HEMOGLOBIN, TOTAL Routine 05/30/2024 11:09 AM EDT Diabetes mellitus without complication ([facility]/HCC) POCT GLUCOSE Routine 05/30/2024 11:09 AM EDT Diabetes mellitus without complication ([facility]/HCC) documented in this encounter Results * (ABNORMAL) POCT HGB A1C (05/30/2024 11:09 AM EDT) Hemoglobin A1C 6.8(A) 4.0 - 6.0 % Blood 05/30/2024 11:0 9 AM EDT [facility] POINT OF CARE TEST ENTER/EDIT ORDERABLES Final Result * POCT Glucose (05/30/2024 11:09 AM EDT) Glucose Blood, POC 96 60 - 200 mg/dL Blood Capillary blood specimen / Unknown 05/30/2024 11:09 AM EDT [facility] POINT OF CARE TEST ENTER/EDIT ORDERABLES Final Result documented in this encounter Visit Diagnoses Diagnosis Healthcare maintenance- Primary Diabetes mellitus without complication (CMS/[facility]) Type II or unspecified type diabetes mellitus without mention of complication, not stated as uncontrolled Need for vaccination Need for prophylactic vaccination and inoculation against unspecified single disease documented in this encounter Additional Health Concerns Assessment Noted Time PHQ-9 Depression Total Score: 0 05/31/19 25 10:51 AM EDT documented as of this encounter Care Teams Grizzly Worker Relationship Specialty Start Date End Date Magda Dupree FNP [address] [place] [phone] PCP - General Family Medicine 11/13/21 documented as of this encounter
--- OUTSIDE RECORDS SUMMARY | 2024-05-30 13:43 | XMS_ITS | Clinical Summary ---
Author Organization [employer] Address [address] [facility] [address] [place] [address] Care Team Providers Care Welder Setter Electron Beam Machine Name Role Phone Magda Dupree [facility] Primary Care Provider [phone] Allergies No known active allergies Medications Alcohol Swabs (Alcohol Prep) 70 % pads Apply 1 application topically. To prep skin prior to fingerstick 12/25/19 22 Active atorvastatin (Lipitor) 20 MG tabletIndications: Hyperlipidemia, unspecified hyperlipidemia type Take 1 tablet (20 mg) by mouth at bedtime. 90 tablet 08/02/19 23 Active Melatonin 3 MG capsule TAKE 1 TABLET BY MOUTH IF NEEDED 90 capsule 08/02/19 23 Active Blood Glucose Monitoring Suppl (CiraNovae) w/Device kit TEST BLOOD SUGAR EVERY DAY 1 kit 09/25/19 23 Active Pain Relief Extra Strength 500 MG tabletIndications: Pain TAKE 2 TABLETS BY MOUTH EVERY 6 HOURS NEEDED FOR PAIN 100 tablet 05/13/19 24 Active ibuprofen 400 MG tabletIndications: Neck pain TAKE 1 TABLET BY MOUTH EVERY 6 HOURS NEEDED FOR MILD OR MODERATE PAIN 30 tablet 1 05/13/19 24 Active traZODone (Desyrel) 50 MG tabletIndications: Insomnia, unspecified type TAKE 1 TABLET BY MOUTH EVERY EVENING AT BEDTIME 30 tablet 1 06/05/19 24 Active estradiol (Estrace) 0.1 MG/GM vaginal cream Insert 1 g into the vagina 2 (two) times a week. 42.5 g 1 06/04/19 24 Active hydrOXYzine HCl (Atarax) 25 MG tabletIndications: Insomnia, unspecified type Take 1 tablet (25 mg) by mouth if needed at bedtime for anxiety (May take 2 tablets (50mg) if needed). 120 tablet 06/17/19 24 025 Active melatonin 5 MG tabletIndications: Insomnia, unspecified type Take 1 tablet by oral route every evening 2-3 hours before bed 90 tablet 3 06/17/19 24 Active FREESTYLE LITE test stripIndications:D iabetes mellitus without complication (CMS/HCC) TEST BLOOD SUGAR EVERY DAY DIRECTED 50 strip 4 12/21/19 24 Active metFORMIN (Glucophage) 1000 MG tabletIndications: Diabetes mellitus without complication (CMS/HCC) TAKE 1 TABLET BY MOUTH TWICE DAILY IN THE MORNING AND IN THE EVENING WITH MEALS 180 tablet 3 12/21/19 24 Active D3-1000 25 MCG (1000 UT) capsuleIndications :Vitamin D deficiency TAKE 1 CAPSULE BY MOUTH EVERY MORNING 90 capsule 1 02/17/20 24 Active lisinopril 10 MG tabletIndications: Primary hypertension TAKE 1 TABLET BY MOUTH EVERY DAY 90 tablet 1 02/17/20 24 Active Active Problems Problem Noted Date Diagnosed Date Dental caries 05/12/2023 Localized gingival recession 05/12/2023 Healthcare maintenance 08/04/2022 Overview (11/25/2023): Mammo: Due 12/2023-ordered Pap: 12/2021, AINSLEY Bates HPV neg NIL C-scope: Upcoming appt. 03/2024 Assessment & Plan (11/18/2022 9:38 PM EDT): ?? Will check on status of GI referral-pt states she has not received info Insomnia 08/04/2022 Overview (08/04/2022): ?? Did not tolerate trazodone d/t s/e (dizziness) Periodontal disease 06/10/2022 Dental plaque 06/10/2022 Essential hypertension 05/01/2022 Overview (08/04/2022): ?? Lisinopril 10mg daily Maintenance: BMP: 05/2021 Lipid Panel: 05/2021 ASCVD Risk: 3.2% EKG: Obtain baseline at f/u - Aerobic exercise to reduce BP. Initial goal of 30 min walk 3-5x/week. Increase as tolerated. - low-sodium diet (goal: <2g/day) and heart healthy diet such as DASH to reduce BP and prevent ASCVD. - Home BP monitoring 1-2 x day with goal of <140/90. - Seek immediate medical attention for chest pain, palpitations, SOB, syncope, or sudden changes in mental status. - Do not change or discontinue current prescriptions without first consulting health care provider Assessment & Plan (11/18/2022 9:37 PM EDT): Well controlled Continue current regimen Assessment & Plan (08/04/2022 10:13 AM EDT): ?? Well controlled ?? Continue current regimen Diabetes mellitus without complication Overview (11/18/2022): ?? Metformin monotherapy A1c: 6.5% 05/2021 BMP: 05/2021 Microalbumin: Foot Exam: 07/2021; Eye Exam: Established with [facility] eye care Lipid panel: 05/2021 ASCVD: 3.2% Statin: Yes ASA: No JESSICA/ARB: Yes Encouraged regular aerobic exercise for improved glycemic control Encouraged daily foot checks Encouraged lean protein snacks and to avoid foods high in sugar and simple carbohydrates Treatment Goals: A1c goal: <7% FBG goal: <130 2 hour post prandial goal: <180 Assessment & Plan (11/18/2022 9:34 PM EDT): Lab Results Component Value Date HGBA1C 6.9 (A) 10/28/2022 ?? Well controlled ?? Continue current regimen Assessment & Plan (08/04/2022 9:16 AM EDT): Lab Results Component Value Date HGBA1C 6.5 (H) 05/19/2022 ?? Continue current regimen ?? Foot exam completed today with notable loss of sensation in bilateral feet. Patient counseled on importance of daily foot checks and protective footwear Hyperlipidemia 04/24/2021 Overview (08/04/2022): ?? Atorvastatin 20mg Assessment & Plan (08/04/2022 10:13 AM EDT): Continue current regimen Vitamin D deficiency 04/24/2021 Resolved Problems Problem Noted Date Diagnosed Date Resolved Date Gingival bleeding 06/10/2022 08/04/2022 Encounters Date Type Department Care Team Description 05/30/2024 10:30 AM EDT Office Visit [facility] MED[facility] [address] [place] [address] Magda Dupree FNP Healthcare maintenance (Primary Dx); Diabetes mellitus without complication (CMS/HCC); Need for vaccination 05/30/2024 Travel 05/18/2024 Patient Outreach [facility] [address] [place] [address] Magda Dupree FNP Pre-visit Planning ((Unable to reach for PVP screening and or LVM)) 04/12/2024 Orders Only [place] [facility] [address] [place] [address] Provider, MD Zuleyma from Last 3 Months Immunizations Name Administration Dates Next Due Influenza injectable quadrivalent preservative f ree 12/26/2021,01/07/2021 Influenza, seasonal, injectable, preservative fr ee 05/30/2024 Pfizer Covid-19 Vaccine 12+ 05/30/2024 Pneumococcal Conjugate PCV 20 10/28/2022 Pneumococcal Polysaccharide PPSV23 07/26/2021 Tdap 01/07/2021 Family History Medical History Relation Name Comments Hypertension Mother Breast cancer Neg Hx Colon cancer Neg Hx Relation Name Status Comments Mother Social History Tobacco Use Types Packs/Day Years [...] Don't know 01/13/2022 10 :39 AM EDT Last Filed Vital Signs Vital Sign Reading [...] Mass Index 30.96 05/30/2024 10:51 AM EDT Plan of Treatment Upcoming Encounters Date Type Department Care Team (Late st Contact Info) Description 08/09/2024 8:00 AM EDT Office Visit [facility] ADULT DENTAL [address] [place] [address] [facility] [place] [address] Health Maintenance Due Date Last Done Comments CT Colonography 1973 FIT DNA/Cologuard 1975 FIT 1975 FOBT 1975 Sigmoidoscopy 1975 Family Planning (PISQ) 1988 Hepatitis B Vaccines (1 of 3 - 19+ 3-dose series) 1992 Dental Oral Exam 11/20/2022 05/19/2022 Dental X-Ray: Bitewings 05/21/2023 05/19/2022 Zoster Vaccines (1 of 2) 11/24/2023 Alcohol/Substance Use Screening 06/16/2024 06/17/2023 SDOH Screening 06/16/2024 06/17/2023 Dental Prophylaxis 08/09/2024 02/09/2024, 05/12/2023, 06/10/2022 Mammogram 12/28/2024 12/29/2023, 12/22/2022, 07/08/2021 Dental X-Ray: Full Mouth 05/20/2025 05/19/2022 Depression Screening 05/30/2025 05/30/2024, 05/30/2024 Tobacco Screening 05/30/2025 05/30/2024 Lipid Panel 06/16/2028 06/17/2023, 05/19/2022, 01/18/2021 Cervical Cancer Screening 12/20/2028 HPV/Cotest 12/20/2028 12/21/2023, 12/26/2021 Pap Smear 12/20/2028 12/21/2023, 12/26/2021 Colonoscopy 04/12/2029 04/12/2024 Colorectal Cancer Screening 04/12/2029 DTaP/Tdap/Td Vaccines (2 - T d or Tdap) 01/07/2031 01/07/2021 RSV Patients and Patients Aged 60 years or older (1 - 1-dose 75+ series) 2048 HIV Screening Completed 01/18/2021 Hepatitis C Screening Completed 01/18/2021 Pneumococcal Vaccine: 50+ Years Completed 10/28/2022, 07/26/2021 COVID-19 Vaccine Completed 05/30/2024, 03/13/2021 Influenza Vaccine Completed 05/30/2024, 12/26/2021, 01/07/2021 HIB Vaccines Aged Out No longer eligi ble based on patient's age to complete this topic HPV Vaccines Aged Out No longer eligi ble based on patient's age to complete this topic Hepatitis A Vaccines Aged Out No long er eligible based on patient's age to complete this topic IPV Vaccines Aged Out No longer eligi ble based on patient's age to complete this topic Meningococcal Vaccine Aged Out No dorothy shelby eligible based on patient's age to complete this topic RSV under 20 months Aged Out No longe r eligible based on patient's age to complete this topic Rotavirus Vaccines Aged Out No longer eligible based on patient's age to complete this topic Procedures Procedure Name Priority Date/Time Associated Diagnosis Comments POCT GLYCATED HEMOGLOBIN, TOTAL Routine 05/30/2024 11:09 AM EDT Diabetes mellitus without complication (CMS/HCC) POCT GLUCOSE Routine 05/30/2024 11:09 AM EDT Diabetes mellitus without complication (CMS/HCC) COLONOSCOPY Routine 04/12/2024 1:14 PM EST PROPHYLAXIS - ADULT Routine 02/09/2024 8 :00 AM EST Dental plaque BI MAMMOGRAM SCREENING TOMOSYNTHESIS BILATERAL Routine 12/29/2023 9:20 AM EDT Breast cancer screening by mammogram THINPREP IMAGING PAP AND HPV MRNA E6/E7 Routine 12/21/2023 10:27 AM EDT LIPID PANEL, STANDARD Routine 06/17/2023 11:52 AM EDT Diabetes mellitus without complication (CMS/HCC) INTRAORAL - COMPLETE SERIES OF RADIOGRAPHIC IMAGES Routine 05/19/2022 11:00 AM EST COMPREHENSIVE ORAL EVALUATION - NEW OR ESTABLISHED PATIENT Routine 05/19/2022 11:00 AM EST ZZZ HISTORICAL HEPATITIS C AB W/REFL TO HCV RNA, QN, PCR Routine 01/18/2021 8:47 AM EDT HIV 1/2 ANTIGEN/ANTIBODY, FOURTH GENERATION W/RFL Routine 01/18/2021 8:47 AM EDT from Last 3 Months or Most Recently Relevant to Health Maintenance Results * (ABNORMAL) POCT HGB A1C (05/30/2024 11:09 AM EDT) Hemoglobin A1C 6.8(A) 4.0 - 6.0 % Blood 05/30/2024 11:0 9 AM EDT [facility] EQUINE MANAGER POINT OF CARE TEST ENTER/EDIT ORDERABLES Final Result * POCT Glucose (05/30/2024 11:09 AM EDT) Pathologist [facility] Glucose Blood, POC 96 60 - 200 mg/dL Blood Capillary blood specimen / Unknown 05/30/2024 11:09 AM EDT [facility] POINT OF CARE TEST ENTER/EDIT ORDERABLES Final Result * Colonoscopy (04/12/2024 1:14 PM EST) Anatomical Region Laterality Modality Endoscopy [facility] Provider ENDOSCOPY PROCEDURE ORDER NEDA Final Result * BI Mammogram Screening Tomosynthesis Bilateral (12/29/2023 9:20 AM EDT) Anatomical Region Laterality Modality Breast Bilateral Mammography 12/29/2023 9:20 AM EDT Narrative 01/11/2024 5:25 PM EDT ? [facility] ? [address] ?[place] [address] ? Mammography Report ? Signed with Addenda ? Patient: Vilma Villanueva ?M ?? R#: [id number] ? : 1975 ?Acct:[id number] ? Age/Sex: 48 / F ?ADM Date: 10/15/24 ? Loc: HO.MAMMO ? Attending Dr: Kavya Bates CNM ? Ordering Physician: Magda Dupree EQUINE MANAGER ?Results: 1Nega ?? tive ? Date of Service: 12/29/23 ?Follow Up: 1 Year From Orig ?? inal Mammogram ? Procedure(s): MM tomosynthesis screening BI ?? Accession Number(s): [id number] ? cc: Magda Dupree EQUINE MANAGER ?ADDENDUM ? ADDENDUM #1 ? ADDENDUM: ?? Due to a software issue related to the original report, this case has ?? been reviewed again and the original findings and recommendations ?? remain the same. ? Electronically signed by: ??Kathe Bella DO ??01/15/2024 10:12 AM EDT ?? RP ? Addendum Dictated By: ?Kathe Bella, DO ? Addendum Signed By: ? <Electronically signed by Kathe Bella, DO in OV> ? 01/15/24 1012 ?? Addendum Cosigned By: ? DD/ ? TD/TT: 12/29/23 ? EXAMINATION: ?? MM SCREENING DIGITAL BREAST TOMOSYNTHESIS, BILATERAL ? CLINICAL INFORMATION: ? Screening. Asymptomatic. ? COMPARISON: ?? Mammography: Comparison is made with available priors ? TECHNIQUE: ?? Digital breast mammography with tomosynthesis is performed in both the ?? craniocaudal and mediolateral oblique views along with computer-aided ?? detection (CAD). ? FINDINGS: ?? There are scattered areas of fibroglandular density (ACR BI-RADS breast ?? composition Category b). ? There are no significant masses, abnormal calcifications, or other ?? abnormalities. ? MM/MM tomosynthesis screening BI ?? IMPRESSION: ?? No mammographic evidence of malignancy. ? ASSESSMENT: ? BI-RADS BI-RADS 1 - Negative ? RECOMMENDATION: ?? Routine annual mammography screening. ? 1 year F/U ? This examination should not preclude the clinical evaluation of a ?? suspicious palpable abnormality. ? This patient's information was entered into a reminder system with a ?? target due date for their next mammogram. ? Electronically signed by: ??Kathe Bella DO ??01/11/2024 05:22 PM EDT ? Dictated By: ?Kathe Bella DO ? Signed By: ?<Electronically signed by Kathe Bella, DO in OV> ? 01/11/24 1722 ? DD/ 9 ? TD/TT: 12/29/23928 ? Plastic Finisher: ? Procedure Note Donlexuster, [facility] [address] [place] [address] Mammography Report Signed with Addenda Patient: Marsha Villanueva R#: [id number] : 1975Acct:[id number] Age/Sex: 48 / FADM Date: 12/29/23 Loc: HO.MAMMO Attending Dr: Kavya Bates CNM Ordering Physician: Magda Dupree FNPResults: 1Nega tive Date of Service: 12/29/23Follow Up: 1 Year From Orig inal Mammogram Procedure(s): MM tomosynthesis screening BI Accession Number(s): [id number] cc: Magda Dupree EQUINE MANAGER ADDENDUM ADDENDUM #1 ADDENDUM: Due to a software issue related to the original report, this case has been reviewed again and the original findings and recommendations remain the same. Electronically signed by: Kathe Bella DO 01/15/2024 10:12 AM EDT Addendum Dictated By: Kathe Bella DO Addendum Signed By: <Electronically signed by DO Serafin in OV> 01/15/24 1012 Addendum Cosigned By: DD/ TD/TT: 12/29/23 EXAMINATION: MM SCREENING DIGITAL BREAST TOMOSYNTHESIS, BILATERAL CLINICAL INFORMATION: Screening. Asymptomatic. COMPARISON: Mammography: Comparison is made with available priors TECHNIQUE: Digital breast mammography with tomosynthesis is performed in both the craniocaudal and mediolateral oblique views along with computer-aided detection (CAD). FINDINGS: There are scattered areas of fibroglandular density (ACR BI-RADS breast composition Category b). There are no significant masses, abnormal calcifications, or other abnormalities. MM/MM tomosynthesis screening BI IMPRESSION: No mammographic evidence of malignancy. ASSESSMENT: BI-RADS BI-RADS 1 - Negative RECOMMENDATION: Routine annual mammography screening. 1 year F/U This examination should not preclude the clinical evaluation of a suspicious palpable abnormality. This patient's information was entered into a reminder system with a target due date for their next mammogram. Electronically signed by: Kathe Bella DO 01/11/2024 05:22 PM EDT Dictated By: Kathe Bella DO Signed By: <Electronically signed by Kathe Bella DO in OV> 01/11/24 1722 DD/ 9 TD/TT: 12/29/23928 Plastic Finisher: [facility] EQUINE MANAGER IMG BI PROCEDURES Edited Resu lt - Final * ThinPrep Imaging Pap and HPV mRNA E6/E7 (12/21/2023 10:27 AM EDT) HPV nRNA E6/E7 Not Detected [facility] Comment:REFERENCE RANGE: Not DetectedMethodology: Bulb Planter-Mediated AmplificationThis assay detects E6/E7 viral messenger RNA (mRNA) from 14high- risk HPV types(16,18,31,33,35,39,45,51,52,56,58,59,66,68).Cervical sources are required for HPV testing.If a vaginal source from a patient who has had atotal hysterectomy with removal of cervix wassubmitted, please contact the testing laboratoryfor alternative testing options.For additional information, please refer tohttp://education.Kloudless/faq/HTD499a6(This link if provided for information/educational purposes only.)THIS TEST PERFORMED AT:[employer] [facility] [address] [phone] DIRECTOR: ZOHRA GONZALEZ MD SOURCE: Cervix [facility] Report Status: [facility] Clinical Information: None given [facility] LMP: NONE GIVEN [facility] Prev. PAP: NONE GIVEN [facility] Prev. BX: NONE GIVEN [facility] Statement Of Adequacy: SEE NOTE [facility] Comment:Satisfactory for gisele luation.Endocervical/transformation zone componentpresent. General Categorization: [facility] Interpretation/Result: SEE NOTE [facility] Comment:Cytology Results: Ne gative for intraepitheliallesion or malignancy. Cytology Comment SEE NOTE [facility] Comment:This Pap test has be en evaluated with computerassisted technology. Assistance Specialist: SEE NOTE [facility] Comment:CMG, CT(ASCP)CT scre ening location: [place] [address] Review Assistance Specialist: [facility] Pathologist [facility] PAP Infection [facility] See Note EXPLANTORY NOTE: [facility] Comment:The Pap is a screeni ng test for cervical cancer. It isnot a diagnostic test and is subject to false negativeand false positive results. It is most reliable when asatisfactory sample, regularly obtained, is submittedwith relevant clinical findings and history, and whenthe Pap result is evaluated along with historic andcurrent clinical information.THIS TEST PERFORMED AT:[employer] [address] [phone] DIRECTOR: ZOHRA GONZALEZ MD 12/21/2023 10:2 7 AM EDT 12/21/2023 6:25 PM EDT Narrative [facility] - 01/01/2024 10:40 AM EDT SEE SCANNED RESULTS IN EMRCERVIX us Kavya Rivasuri CNM LAB PATHOLOGY ORDERABLES Final Result [facility] [address] [place] [address] [phone] * (ABNORMAL) Lipid Panel, Standard (06/17/2023 11:52 AM EDT) Triglycerides 264(H) <150 mg/dL [facility] Comment:Desirable Triglyceri de: less than 150 mg/dLBorderline High Triglyceride 150-199 mg/dLHigh Triglyceride: 200-499 mg/dLVery High Triglyceride: greater than or equal to 5OO mg/dL Cholesterol 238(H) <200 mg/dL [facility] Comment:Desirable Cholestero l: less than 200 mg/dLBorderline High Cholesterol: 200-239 mg/dLHigh Cholesterol: greater than 239 mg/dL LDL Cholesterol Calculated 138(H) <100 mg/dL [facility] Comment:Desirable LDL: less than 100 mg/dLNear Optimal/Above Optimal LDL: 110- 129 mg/dLBorderline High LDL: 130-159 mg/dLHigh LDL: 160-189 mg/dLVery High LDL: greater than or equal to 190 mg/dL HDL Cholesterol 48 >40 mg/dL [facility] Comment:Desirable HDL: great er than 40 mg/dL Note: This HDL assay may give artificially low results in patients with liver disease. Blood Venous blood specimen / Unknown 06/17/2023 11:52 AM EDT 06/17/2023 1:18 PM EDT [facility] EQUINE MANAGER LAB BLOOD ORDERABLES Final Re sult [facility] [address] [place] [address] [phone] * HEPATITIS C AB W/REFL TO HCV RNA, QN, PCR (01/18/2021 8:47 AM EDT) HEPATITIS C ANTIBODY NON-REACT JORGITO NON-REACT [facility] INDEX 0.01 <1.00 [facility] Comment: ?? HCV antibody was non-reactive. There is no laboratory ?? evidence of HCV infection. ?? In most cases, no further action is required. However, if recent HCV exposure is suspected, a test for HCV RNA (test code 27556) is suggested. ?? For additional information please refer to http://AccuRev.Kloudless/faq/HHV13n3 (This link is being provided for informational/ educational purposes only.) ?? 01/18/2021 8:47 AM EDT Vaishali Zev RAMIREZ HISTORICAL/NON ORDERABLE LABS Final Result Performing Organization Address [facility] de Phone Number [facility] [place] [address], * HIV 1/2 ANTIGEN/ANTIBODY,FOURTH GENERATION W/RFL (01/18/2021 8:47 AM EDT) HIV-1/2 ANTIGEN AND ANTIBODIES, 4TH GENERATION W/ REFLEX NON-REACT JORGITO NON-REACT JORGITO [facility] Comment: HIV-1 antigen and HIV-1/HIV-2 antibodies were not detected. There is no laboratory evidence of HIV infection. ?? PLEASE NOTE: This information has been disclosed to you from records whose confidentiality may be protected by state law. ??If your state requires such protection, then the state law prohibits you from making any further disclosure of the information without the specific written consent of the person to whom it pertains, or as otherwise permitted by law. A general authorization for the release of medical or other information is NOT sufficient for this purpose. ? For additional information please refer to http://AccuRev.Kloudless/faq/VDG499 (This link is being provided for informational/ educational purposes only.) ? The performance of this assay has not been clinically validated in patients less than 2 years old. ?? 01/18/2021 8:47 AM EDT Vaishali Zev RAMIREZ LAB BLOOD ORDERABLES Final Res ult Performing Organization Address [facility] de Phone Number [facility] [address] [place], [place] [address] from Last 3 Months or Most Recently Relevant to Health Maintenance Insurance [place] [facility]-[facility] MEDICAID LIMITED ADULT DENTAL - HSN FULL (MEDICAID) Care Teams Welder Setter Electron Beam Machine Relationship Specialty Start Date End Date Magda Dupree FNP [address] [place] [phone] PCP - General Family Medicine 11/13/21
--- OUTSIDE RECORDS SUMMARY | 2024-05-30 13:43 | XMS_ITS | Encounter Summary ---
Author Organization [employer] Address [address] [facility] [address] [place] [address] Care Team Providers Care Assembler Leather Goods Name Role Phone [facility] Primary Care Provider [phone] Reason for Visit * Reason Comments Pre-visit Planning (Unable to reach for PVP screening and or LVM) Encounter Details Date Type Department Care Team ([facility] Contact Info) Description 05/18/2024 Patient Outreach [facility] [address] [place], [place] [phone] [facility] [address] [place] [address] Pre-visit Planning ((Unable to reach for PVP screening and or LVM)) Social History Tobacco Use Types Packs/Day Years [...] AM EDT documented as of this encounter Progress Notes * Nneka Manning - 05/18/2024 11:20 AM EST CC Nneka placed outbound call to patient to complete pre-visit planning. No answer at this time. Patient name and were not confirmed. CC unable to leave a voice message. documented in this encounter Plan of Treatment Upcoming Encounters Date Type Department Care Team (Late st Contact Info) Description 08/09/2024 8:00 AM EDT Office Visit [facility] ADULT DENTAL [address] [place] [address] Ephraim Gretchen [address] [place] [address] documented as of this encounter Visit Diagnoses Not on filedocumented in this encounter Additional Health Concerns Assessment Noted Time PHQ-9 Depression Total Score: 0 11/25/19 24 9:24 AM EDT documented as of this encounter Care Teams Assembler Leather Goods Relationship Specialty Start Date End Date Magda Dupree FNP [address] [place] [address] PCP - General Family Medicine 11/13/21 documented as of this encounter
[2024-05-30 13:45] LABS: Anion Gap 12 (12-20); Blood Urea Nitrogen 12 mg/dL (9-16); Calcium 10.2 mg/dL (8.4-10.2); Carbon Dioxide 28 mmol/L (22-29); Chloride 106 mmol/L (96-108); Estimated Glomerular Filt Rate > 60; Glucose Random 109 mg/dL (60-115); Potassium 4.1 mmol/L (3.3-5.1); Sodium 142 mmol/L (135-145)
[2024-05-30 14:02] LABS: HBS Num1 0.83 mIU/mL (0-7.99); HBc Num1 0.09 S/CO (0.00-0.79); HBsAGNum1 0.24 S/CO (0.00-0.99); Hepatitis A Antibody IgM 0.18 Index (0-0.79); Hepatitis B Core Antibody Nonreactive (Nonreactive); Hepatitis B Surface Antigen Negative (Negative); ~HepC Num1 0.23 S/CO (0.00-0.79); ~Hepatitis A Antibody IgM Nonreactive (Nonreactive); ~Hepatitis B Surface Antibody NONREACTIVE (Nonreactive); ~Hepatitis C Antibody Nonreactive (Nonreactive)
[2024-05-30 14:13] LABS: Folate 14.8 ng/mL (> or = 4.0); Vitamin B12 699 pg/mL (200-900)
[2024-05-31 13:18] LABS: Rubella IgG Antibody >33.00 Index; Rubeola IgG (Measles) >300.00 AU/mL
== END 2024-05-30 11:32 | disposition home or self-care (01) ==
LOC: HO.HHCL 11:31
PROVIDERS: Visit Provider Registered Nurse
DX: Z00.00 Encounter for general adult medical examination without abnormal findings (principal); E11.9 Type 2 diabetes mellitus without complications
CPT/HCPCS: 36415; 80048; 82607; 82746; 86704; 86706; 86709; 86735; 86762; 86765; 86787; 86803; 87340

== ENCOUNTER → 2025-01-20 11:45 | Outpatient (BNV) | payer MEDICAID, SELFPAY | PROVIDERS: PCP Registered Nurse; Visit Provider Internal Medicine | DX: Z12.31 Encounter for screening mammogram for malignant neoplasm of breast (principal) | CPT/HCPCS: 77063; 77067 ==

== ENCOUNTER 2025-01-20 12:05 | Outpatient (REF) | payer MEDICAID, OTHER, SELFPAY ==
--- OUTSIDE RECORDS SUMMARY | 2025-01-20 14:26 | XMS_ITS | Encounter Summary ---
Author Organization [employer] Address [address] [place] [address] [address] [address] Care Team Providers Care Commercial Real Estate Agent Name Role Phone Magda Dupree Primary Care Provider [phone] Encounter Details Date Type Department Care Team (Late st Contact Info) Description 02/21/2022 [facility] Only [facility] [address] [place] [address] Ema Coughlin RN [address] [place] [address] Social History Tobacco Use Types Packs/Day Years [...] Care Team (Late st Contact Info) Description 02/20/2025 8:00 AM EST Office Visit [facility] ADULT DENTAL [address] [place] [address] EphraimGretchen ugalde [address] [place] [address] documented as of this encounter Visit Diagnoses Not on filedocumented in this encounter Care Teams Commercial Real Estate Agent Relationship Specialty Start Date End Date Magda Dupree FNP [address] [place] [address] PCP - General Family Medicine 8/31/22 documented as of this encounter
--- OUTSIDE RECORDS SUMMARY | 2025-01-20 14:26 | XMS_ITS | Clinical Summary ---
Author Organization [employer] Address [address] [facility] 7 [place] [address] Care Team Providers Care Signals Analyst Name Role Phone Magda Dupree LINING STRAP CLOSER Primary Care Provider [phone] Allergies No known active allergies Medications traZODone (Desyrel) 50 MG tabletIndications :Insomnia, unspecified type TAKE 1 TABLET BY MOUTH EVERY EVENING AT BEDTIME 30 tablet 1 4 Active melatonin 5 MG tabletIndications :Insomnia, unspecified type Take 1 tablet by oral route every evening 2-3 hours before bed 90 tablet 3 4 Active metFORMIN (Glucophage) 1000 MG tabletIndications :Diabetes mellitus without complication (HCC) TAKE 1 TABLET BY MOUTH TWICE DAILY IN THE MORNING AND IN THE EVENING WITH MEALS 180 tablet 3 4 Active D3-1000 25 MCG (1000 UT) capsuleIndication s:Vitamin D deficiency TAKE 1 CAPSULE BY MOUTH EVERY MORNING 90 capsule 1 4 Active lisinopril 10 MG tabletIndications :Primary hypertension TAKE 1 TABLET BY MOUTH EVERY DAY 90 tablet 1 4 Active glucose blood (FREESTYLE LITE) test stripIndications: Diabetes mellitus without complication (HCC) TEST BLOOD SUGAR EVERY DAY DIRECTED 50 strip 4 5 Active hydrOXYzine HCl (Atarax) 25 MG tabletIndications :Insomnia, unspecified type Take 1 tablet (25 mg) by mouth if needed at bedtime for anxiety. 120 tablet 1 5 Active Alcohol Swabs (Alcohol Prep) 70 % pads USE TO TEST BLOOD SUGAR EVERY DAY DIRECTED 100 each 3 5 Active Active Problems Problem Noted Date Diagnosed Date Missing teeth, acquired 08/09/2024 Dental caries 05/12/2023 Localized gingival recession 05/12/2023 Healthcare maintenance 08/04/2022 Overview (11/25/2023): Mammo: Due 12/2023-ordered Pap: 12/2021, CNM Jana HPV neg NIL C-scope: Upcoming appt. 03/2024 Assessment & Plan (11/18/2022 9:38 PM EDT): Will check on status of GI referral-pt states she has not received info Insomnia 08/04/2022 Overview (08/04/2022): Did not tolerate trazodone d/t s/e (dizziness) Periodontal disease 06/10/2022 Dental plaque 06/10/2022 Essential hypertension 05/01/2022 Overview (08/04/2022): Lisinopril 10mg daily Maintenance: BMP: 05/2021 Lipid [...] Assessment & Plan (08/04/2022 10:13 AM EDT): Well controlled Continue current regimen Diabetes mellitus without complication Overview (11/18/2022): Metformin monotherapy A1c: 6.5% 05/2021 BMP: 05/2021 Microalbumin: Foot Exam: 07/2021; Eye Exam: Established with [facility] eye care Lipid panel: 05/2021 ASCVD: 3.2% [...] Component Value Date HGBA1C 6.9 (A) 10/28/2022 Well controlled Continue current regimen Assessment & Plan (08/04/2022 9:16 AM EDT): Lab Results Component Value Date HGBA1C 6.5 (H) 05/19/2022 Continue current regimen Foot exam completed today with notable loss of sensation in bilateral feet. Patient counseled on importance of daily foot checks and protective footwear Hyperlipidemia 04/24/2021 Overview (08/04/2022): Atorvastatin 20mg Assessment & Plan (08/04/2022 10:13 AM EDT): Continue current regimen Vitamin D deficiency 04/24/2021 Resolved Problems Problem Noted Date Diagnosed Date Resolved Date Gingival bleeding 06/10/2022 08/04/2022 Encounters Date Type Department Care Team Description 11/30/2024 10:00 AM EDT Office Visit [facility] MEDICINE [address] [place] [address] Magda Dupree FNP Diabetes mellitus without complication ([facility]); Insomnia, unspecified type 11/30/2024 Refill [facility] MEDICINE [address] [place] [address] Magda Dupree FNP 11/30/2024 Travel 11/29/2024 Telephone [facility] [address] [place] [address] Magda Dupree FNP Chart Prep 11/22/2024 Patient Outreach [address] [address] Magda Dupree FNP Pre-visit Planning ((Unable to reach for PVP screening, LVM) to be completed in office ) 10/31/2024 10:00 AM EDT Office Visit [facility] OPTOMETRY [address] [place] [address] Abel, Indu, OD Diabetes mellitus without complication (CMS/HCC) (Primary Dx); Dry eyes; 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 I have chel catherine 11/30/[address] you li ve. Do you have problems with any of the following? None of the above 11/30/2024 Food Insecurity Answer Date Recorded Within the past 12 months, y ou worried that your food would run out before you got money to buy more: Never True 11/30/2024 Within the past 12 months,th e food you bought just didn't last and you didn't have enough money to get more: Never True Transportation Answer Date Recorded In the past 12 months, has l ack of transportation kept you from medical appts, meetings, work or from getting things needed for daily living? No 11/30/2024 Utilities Answer Date Recorded In the past 12 months, has t he electric, gas, oil or water company threatened to shut off services in your home? No 11/30/2024 Depression Answer Date Recorded Patient Health Questionnaire-2 Score 0 11/30/2024 Internet Access Answer Date Recorded Internet Access Q1 Yes 11/30/2024 Internet Access Q2 Not on file 11/30/2024 Comments No Sex and Gender Information Value Date Recorded Sex Assigned at Female 01/13/2022 10:39 AM EDT Legal Sex Female 10:39 AM EDT Gender Identity Female 01/13/2022 10:39 AM EDT Sexual Orientation Don't know 01/13/2022 10 :39 AM EDT Last Filed Vital Signs Vital Sign Reading Time Taken Comments Blood Pressure 138/88 11/30/2024 10:19 AM EDT Pulse 84 11/30/2024 10:03 AM EDT Temperature 36.1 C (97 F) 11/30/2024 10:03 AM EDT Respiratory Rate 20 11/30/2024 10:03 AM EDT Oxygen Saturation 100% 05/30/2024 10:51 AM EDT Inhaled Oxygen Concentration - - Weight 83.1 kg (183 lb 3.2 oz) 11/30/2024 10:03 AM EDT Height 160 cm (5' 3 ) 11/30/2024 10:03 AM EDT Body Mass Index 32.45 11/30/2024 10:03 AM EDT Plan of Treatment Upcoming Encounters Date Type Department Care Team (Late st Contact Info) Description 02/20/2025 8:00 AM EST Office Visit [facility] ADULT DENTAL [address] [place] [address] Ephraim Gretchen [address] [place] [address] Health Maintenance Due Date Last Done Comments CT Colonography 1975 FIT DNA/Cologuard 1975 FIT 1975 FOBT 1975 Sigmoidoscopy 1975 Disability Screening 1975 Family Planning (PISQ) 1988 Zoster Vaccines (1 of 2) 11/24/2023 Diabetes: Urine Protein Screening 06/16/2024 06/17/2023 Lipid Panel 06/16/2024 06/17/2023, 0308/2022, 01/18/2021 Hepatitis B Vaccines (2 of 3 - 19+ 3-dose series) 07/04/2024 06/06/2024 Influenza Vaccine (#1) 2024 , 12/26/2021, 01/07/2021 Mammogram 12/28/2024 12/29/2023, 11/2022, 07/08/2021 Dental Oral Exam 02/10/2025 08/09/2024, 05/19/2022 Dental Prophylaxis 02/10/2025 08/09/2024, 1 04/10/2023, 05/12/2023, Additional history exists Dental X-Ray: Full Mouth 05/20/2025 05/19/2022 Diabetes: Hemoglobin A1C 05/30/2025 025, 05/30/2024, 11/25/2023, Additional history exists Dental X-Ray: Bitewings 08/10/2025 08/09/2024, 05/19 Alcohol/Substance Use Screening 11/30/2025 11/30/2024 Depression Screening 11/30/2025 11/30/2024, 12/01/19 25 Diabetes: Foot Exam 11/30/2025 11/30/2024, 11/30/2024, 11/30/2024, Additional history exists SDOH Screening 11/30/2025 11/30/2024 Tobacco Screening 11/30/2025 11/30/2024 Eye Exam 10/31/2026 10/31/2024, 10/14, 10/31/2024, Additional history exists Cervical Cancer Screening 12/20/2028 HPV/Cotest 12/20/2028 12/21/2023, 12/26/2021 Pap Smear 12/20/2028 12/21/2023, 12/26/2021 Colonoscopy 04/12/2029 04/12/2024 Colorectal Cancer Screening 04/12/2029 DTaP/Tdap/Td Vaccines (2 - Td or Tdap) 01/07/2031 01/07/2021 RSV Patients and Patients Aged 60 years or older (1 - 1-dose 75+ series) 2048 HIV Screening Completed 01/18/2021 Pneumococcal Vaccine: 50+ Years Completed 10/28/2022, 07/26/2021 COVID-19 Vaccine Completed 05/30/2024, 03/13/2021 Hepatitis C Screening Completed 05/30/2024, 021 HIB Vaccines Aged Out No longer eligi [...] patient's age to complete this topic Meningococcal B Vaccine Aged Out No l onger eligible based on patient's age to complete [...] Diagnosis Comments POCT GLYCATED HEMOGLOBIN, TOTAL Routine 11/30/2024 10:07 AM EDT Diabetes mellitus without complication ([facility]/HCC) POCT GLUCOSE Routine 11/30/2024 10:05 AM EDT Diabetes mellitus without complication (CMS/HCC) PROPHYLAXIS - ADULT Routine 08/09/2024 8 :00 AM EDT Dental calculus Periodontal disease BITEWINGS - 4 RADIOGRAPHIC IMAGES Routine 08/09/2024 8:00 AM EDT Extruded tooth Tipped teeth Dental calculus Localized gingival recession Periodontal disease Missing teeth, acquired PERIODIC ORAL EVALUATION - ESTABLISHED PATIENT Routine 08/09/2024 8:00 AM EDT HEPATITIS PANEL, GENERAL Routine 05/30/2024 11:33 AM EDT Healthcare maintenance COLONOSCOPY Routine 04/12/2024 1:14 PM EST BI MAMMOGRAM SCREENING TOMOSYNTHESIS BILATERAL Routine 12/29/2023 9:20 AM EDT Breast cancer screening by mammogram THINPREP IMAGING PAP AND HPV MRNA E6/E7 Routine 12/21/2023 10:27 AM EDT ALBUMIN, RANDOM URINE W/CREATININE Routine 06/17/2023 11:52 AM EDT Diabetes mellitus without complication (CMS/HCC) LIPID PANEL, STANDARD Routine 06/17/2023 11:52 AM EDT Diabetes mellitus without complication (CMS/HCC) INTRAORAL - COMPLETE SERIES OF RADIOGRAPHIC IMAGES Routine 05/19/2022 11:00 AM EST HIV 1/2 ANTIGEN/ANTIBODY, FOURTH GENERATION W/RFL Routine 01/18/2021 8:47 AM EDT from Last 3 Months or Most Recently Relevant to Health Maintenance Results * (ABNORMAL) POCT Hgb A1c (11/30/2024 10:07 AM EDT) [facility] Hemoglobin A1C 6.6(A) 4.0 - 5.7 % QC Media Lot # [id number] Lot# Expiration Date [id number] Blood 11/30/2024 10:0 7 AM EDT [facility] POINT OF CARE TEST ENTER/EDIT ORDERABLES Final Result * POCT Glucose (11/30/2024 10:05 AM EDT) [facility] Glucose Blood, POC 102 60 - 200 mg/dL Blood Capillary blood specimen / Unknown 11/30/2024 10:05 AM EDT [facility] POINT OF CARE TEST ENTER/EDIT ORDERABLES Final Result * Hepatitis A,B,C Profile (05/30/2024 11:33 AM EDT) [facility] Hepatitis A IgM Nonreactive Nonreactive [facility] Comment:IgM antibodies to ISSA V not detected; does not exclude earlyacute or recovered HAV infection. ~Hepatitis B Surface Antibody NONREACTIVE Nonreactive [facility] Comment:Nonreactive: < 8.00 mIU/mL Hepatitis B Core Antibody Nonreactive Nonreactive [facility] Hepatitis C Antibody Nonreactive Nonreactive [facility] Comment:Antibodies to HCV no t detected; does not exclude early acuteHCV infection. Hepatitis B Surface Ag Negative Negative [facility] Blood Venous blood specimen / Unknown 05/30/2024 11:33 AM EDT 05/30/2024 1:14 PM EDT [facility] LINING STRAP CLOSER LAB BLOOD ORDERABLES Final Re sult [facility] [address] [place] [address] [phone] * Colonoscopy (04/12/2024 1:14 PM EST) Anatomical Region Laterality Modality Endoscopy [facility] Provider ENDOSCOPY PROCEDURE ORDER NEDA Final Result * BI Mammogram Screening Tomosynthesis Bilateral (12/29/2023 9:20 AM EDT) Anatomical Region Laterality Modality Breast Bilateral Mammography 12/29/2023 9:20 AM EDT Narrative 01/11/2024 5:25 PM EDT [facility] [address] [place] [address] Mammography Report Signed with Addenda Patient: Vilma Villanueva#: [id number] : 1975 Acct:[id number] Age/Sex: 48 / F ADM Date: 12/29/23 Loc: MAMMAg Attending Dr: Kavya Bates CNM Ordering Physician: Magda Dupree Results: 1Nega tive Date of Service: 12/29/23 Follow Up: 1 Year From Orig inal Mammogram Procedure(s): MM tomosynthesis screening BI Accession Number(s): [id number] cc: Magda Dupree ADDENDUM ADDENDUM #1 ADDENDUM: Due to a software issue related to the original report, this case has been reviewed again and the original findings and recommendations remain the same. Electronically signed by: Kathe Bella DO 01/15/2024 10:12 AM EDT RP Addendum Dictated By: Kathe Bella DO Addendum Signed By: <Electronically signed by Kathe Bella DO in OV> 01/15/24 1012 Addendum Cosigned By: [...] their next mammogram. Electronically signed by: Kathe eBlla DO 01/11/2024 05:22 PM EDT RP Dictated By: Kathe Bella DO Signed By: <Electronically signed by Kathe Bella DO in OV> 01/11/24 1722 DD/ 9 TD/TT: 12/29/23928 Portfolio Architect: Procedure Note Donotuseinterpreter, Image - 01/15/2024 [facility] [address] [place] [address] Mammography Report Signed with Addenda Patient: Marsha Villanueva R#: [id number] : 1975Acct:[id number] Age/Sex: 48 / FADM Date: 12/29/23 Loc: HO.MAMMO Attending Dr: Kavya Bates CNM Ordering Physician: Magda Dupree FNPResults: 1Nega tive Date of Service: 12/29/23Follow Up: 1 Year From Orig inal Mammogram Procedure(s): MM tomosynthesis screening BI Accession Number(s): [id number] cc: Magda Dupree LINING STRAP CLOSER ADDENDUM ADDENDUM #1 ADDENDUM: Due to a software issue related to the original report, this case has been reviewed again and the original findings and recommendations remain the same. Electronically signed by: Kathe Bella DO 01/15/2024 10:12 AM EDT RP Addendum Dictated By: Kathe Bella DO Addendum [...] Kathe Bella DO 01/11/2024 05:22 PM EDT RP Dictated By: Kathe Bella DO Signed By: <Electronically signed by Kathe Bella DO in OV> 10/28/24 1722 DD/ 0920 TD/TT: 12/29/23 0929 Portfolio Architect: [facility] LINING STRAP CLOSER IMG BI PROCEDURES Edited Resu lt - Final * ThinPrep Imaging Pap and HPV mRNA E6/E7 (12/21/2023 10:27 AM EDT) HPV nRNA E6/E7 Not Detected [facility] Comment:REFERENCE RANGE: Not DetectedMethodology: Sweat Box Attendant-Mediated AmplificationThis assay detects E6/E7 viral messenger RNA (mRNA) from 14high- risk HPV types(16,18,31,33,35,39,45,51,52,56,58,59,66,68).Cervical sources are required for HPV testing.If a vaginal source from a patient who has had atotal hysterectomy with removal of cervix wassubmitted, please contact the testing laboratoryfor alternative testing options.For additional information, please refer tohttp://education.Neighborland/faq/CNW962c0(This link if provided for information/educational purposes only.)THIS TEST PERFORMED AT:[employer] [address] [phone] DIRECTOR: ZOHRA GONZALEZ MD SOURCE: Cervix [facility] Report Status: [facility] Clinical Information: None given [facility] LMP: NONE GIVEN [facility] Prev. PAP: NONE GIVEN [facility] Prev. BX: NONE GIVEN [facility] Statement Of Adequacy: SEE NOTE [facility] Comment:Satisfactory for gisele luation.Endocervical/transformation zone componentpresent. General Categorization: [facility] Interpretation/Result: SEE NOTE [facility] Comment:Cytology Results: Ne gative for intraepitheliallesion or malignancy. Cytology Comment SEE NOTE [facility] Comment:This Pap test has be en evaluated with computerassisted technology. Carbon Capture Power Plant Manager: SEE NOTE [facility] Comment:CMG, CT(ASCP)CT scre ening location: [address], [place] [address] Review Carbon Capt[employer] Power Plant Manager: [facility] Pathologist [facility] PAP Infection [facility] See Note EXPLANTORY NOTE: [facility] Comment:The Pap is a screeni ng test for cervical cancer. It isnot a diagnostic test and is subject to false negativeand false positive results. It is most reliable when asatisfactory sample, regularly obtained, is submittedwith relevant clinical findings and history, and whenthe Pap result is evaluated along with historic andcurrent clinical information.THIS TEST PERFORMED AT:[employer] [place] [phone] DIRECTOR: ZOHRA GONZALEZ MD 12/21/2023 10:2 7 AM EDT 12/21/2023 6:25 PM EDT Narrative [facility] - 01/01/2024 10:40 AM EDT SEE SCANNED RESULTS IN EMRCERVIX Kavya Bates [facility] LAB PATHOLOGY ORDERABLES Final Result [facility] [address] [place] [phone] * Albumin, Random Urine W/Creatinine (06/17/2023 11:52 AM EDT) Creatinine, Urine 81.37 mg/dL [facility] Microalbumin Urine <5.0 mg/L [facility] Microalbum Creatinine Ratio Ur TNP <30 ug/mg cr [facility] Comment:Unable to calculate albumin/creatinine ratio due to lowmicroalbumin or creatinine result. Urine 06/17/2023 11:5 2 AM EDT 06/17/2023 1:34 PM EDT [facility] LAB URINE ORDERABLES Final Re sult Performing Organization Address City/[facility]/ZIP Co de Phone Number [facility] [address] [place] [address] [phone] * (ABNORMAL) Lipid Panel, Standard (06/17/2023 11:52 AM EDT) Triglycerides 264(H) <150 mg/dL [facility] Comment:Desirable Triglyceri de: less than 150 mg/dLBorderline High Triglyceride 150-199 mg/dLHigh Triglyceride: 200-499 mg/dLVery High Triglyceride: greater than or equal to 5OO mg/dL Cholesterol 238(H) <200 mg/dL [facility] Comment:Desirable Cholestero l: less than 200 mg/dLBorderline High Cholesterol: 200-239 mg/dLHigh Cholesterol: greater than 239 mg/dL LDL Cholesterol Calculated 138(H) <100 mg/dL [facility] Comment:Desirable LDL: less than 100 mg/dLNear Optimal/Above Optimal LDL: 110- 129 mg/dLBorderline High LDL: 130-159 mg/dLHigh LDL: 160-189 mg/dLVery High LDL: greater than or equal to 190 mg/dL HDL Cholesterol 48 >40 mg/dL [facility] Comment:Desirable HDL: great er than 40 mg/dL Note: This HDL assay may give artificially low results in patients with liver disease. Blood Venous blood specimen / Unknown 06/17/2023 11:52 AM EDT 06/17/2023 1:18 PM EDT [facility] LAB BLOOD ORDERABLES Final Re sult [facility] [address] [place] [phone] * HIV 1/2 ANTIGEN/ANTIBODY,FOURTH GENERATION W/RFL (01/18/2021 8:47 AM EDT) HIV-1/2 ANTIGEN AND ANTIBODIES, 4TH GENERATION W/ REFLEX NON-REACT [facility] NON-REACT [facility] Comment: HIV-1 antigen and HIV-1/HIV-2 antibodies were not detected. There is no laboratory evidence of HIV infection. PLEASE NOTE: This information has been disclosed to you from records whose confidentiality may be protected by state law. If your state requires such protection, then the state law prohibits you from making any further disclosure of the information without the specific written consent of the person to whom it pertains, or as otherwise permitted by law. A general authorization for the release of medical or other information is NOT sufficient for this purpose. For additional information please refer to http://education.Spredfashion.Loandesk/faq/HLC890 (This link is being provided for informational/ educational purposes only.) The performance of this assay has not been clinically validated in patients less than 2 years old. 01/18/2021 8:47 AM EDT us Vaishali Brothers NP LAB BLOOD ORDERABLES Final Res ult [facility] Anywhere [address] from Last 3 Months or Most Recently Relevant to Health Maintenance Insurance [facility] [place] ADULT DENTAL - [facility] FULL (MEDICAID) Care Teams Signals Analyst Relationship Specialty Start Date End Date [place] HardwickMag[place] FNP [address] [place] [address] PCP - General Family Medicine 11/13/21
--- OUTSIDE RECORDS SUMMARY | 2025-01-20 14:26 | XMS_ITS | Encounter Summary ---
Author Organization [employer] Address [address] [facility] [address] [place] [address] Care Team Providers Care Sewer Head Name Role Phone Magda Dupree SCANNING SUPERVISOR Primary Care Provider [phone] Encounter Details Date Type Department Care Team ([facility] Contact Info) Description 04/12/2024 Orders Only [facility] Information Management [address] [place], [place] [phone] ProviderZuleyma MD Social History Tobacco Use Types [...] Description 02/20/2025 8:00 AM EST Office Visit [facility] ADULT DENTAL [address] [place] [address] Ephraim, Gretchen [address] [place] [address] documented as of this encounter Procedures Procedure [...] documented as of this encounter Care Teams Sewer Head Relationship Specialty Start Date End Date Magda Dupree FNP [address] [place] [address] PCP - General Family Medicine 11/13/21 documented as of this encounter
--- OUTSIDE RECORDS SUMMARY | 2025-01-20 14:26 | XMS_ITS | Encounter Summary ---
Author Organization [employer] Address [address] [facility] [address] [place] [address] Care Team Providers Care Burr Machine Operator Name Role Phone Magda Dupree BUSINESS PERFORMANCE SPECIALIST Primary Care Provider [phone] Encounter Details Date Type Department Care Team (Late st Contact Info) Description 07/04/2022 Abstract [facility] ADULT DENTAL [address] [place] [address] Gretchen Ye [address] [place] [address] Social History Tobacco Use Types Packs/Day Years [...] Department Care Team (Late Contact Info) Description 02/20/2025 8:00 AM EST Office Visit [facility] ADULT DENTAL [address] [place] [address] Gretchen Ye [address] [place] [address] documented as of this encounter Visit Diagnoses Not on filedocumented in this encounter Additional Health Concerns Assessment Noted Time PHQ-9 Depression Total Score: 0 05/01/19 23 2:16 PM EST documented as of this encounter Care Teams Burr Machine Operator Relationship Specialty Start Date End Date Magda Dupree FNP [address] [place] [address] PCP - General Family Medicine 11/13/21 documented as of this encounter
--- OUTSIDE RECORDS SUMMARY | 2025-01-20 14:26 | XMS_ITS | Clinical Summary ---
Author Organization [facility] Address [address] [place] [address] Care Team Providers Care Director Pharmacology Name Role Phone [facility] Primary Care Provider [phone] Allergies No known active allergies Medications LISINOPRIL ORAL Take 10 mg by mouth once a day. Active metformin HCl (METFORMIN ORAL) Take 1,000 mg by mouth 2 times a day. Active cholecalciferol (VITAMIN D3) 2,000 unit tablet Take 1 tablet by mouth once a day. Active Active Problems Problem Noted Date Diagnosed Date Overactive bladder 07/15/2024 Stress incontinence in female 07/15/2024 Family History Medical History Relation Name Comments [...] Sex Female 3:17 PM EDT Gender Identity Female 07/14/2024 9:34 PM EDT Sexual Orientation Straight 07/14/2024 9: 34 PM EDT Last Filed Vital Signs Vital Sign Reading Time Taken Comments Blood Pressure 140/90 07/15/2024 9:20 AM EDT Pulse 66 04/12/2024 8:50 AM EST Temperature 36.4 C (97.5 F) 04/12/2024 7:45 AM EST Respiratory Rate 12 04/12/2024 8:50 AM EST Oxygen Saturation 99% 04/12/2024 8:45 AM EST Inhaled Oxygen Concentration - - Weight 80.4 kg (177 lb 3.2 oz) 07/15/2024 9:20 A M EDT Height 160 cm (5' 3 ) 04/12/2024 7:45 AM EST Body Mass Index 31.39 04/12/2024 7:45 AM EST Plan of Treatment Health Maintenance Due Date Last Done Comments Cervical Cancer Screening 1973 Cologuard 1973 HPV and Pap Smear 1973 Hepatitis C Screening 1973 Pap Smear 1973 Sigmoidoscopy 1973 Mammogram 2013 FOBT / Fit Test 05/20/2023 05/19/2022 Zoster Vaccines (1 of 2) 11/24/2023 Alcohol/Substance Use Screening 03/16/2024 Depression Screening and Follow-Up 03/16/2024 Social Drivers of Health Rosa ual Screening 03/16/2024 Hepatitis B Vaccines (2 of 3 - 19+ 3-dose series) 07/04/2024 06/06/2024 COVID-19 Vaccine (3 - 2024-2 6 season) 2024 05/30/2024, 03/13/2021 Influenza Vaccine (#1) 2024 5, 12/26/2021, 01/07/2021 Diabetes Screening 05/31/2027 05/30/2024, 0 05/30/2024, 05/30/2024, Additional history exists DTaP,Tdap,and Td Vaccines (2 - Td or Tdap) 01/07/2031 01/07/2021 Colon Cancer Screening 04/12/2034 Colonoscopy 04/12/2034 04/12/2024 RSV Vaccine (60+ years old a nd patients) (1 - 1-dose 75+ series) 2048 HIV Screening Completed 01/18/2021, 01/18/2021 Pneumococcal Vaccine: 50+ Years Completed 3, 07/26/2021 Procedures * Due to [place] state law, this organization might not be sharing negative HIV tests. Procedure Name Priority Date/Time Associated Diagnosis Comments COLONOSCOPY 04/12/2024 POCT GLUCOSE Routine 03/08/2024 6:08 AM EST from Last 3 Months or Most Recently Relevant to Health Maintenance Results * Due to [place] state law, this organization might not be sharing negative HIV tests. * COLONOSCOPY (04/12/2024) Narrative Procedure Note Miguel Hernandez MD - 04/12/2024 7:21 AM EST [facility] Patient Name: Vilma Gould Procedure Date: 04/12/2024 7:21AM Date of : 1975 Admit Type: Outpatient Age: 48 Room: [place] [address] Gender: Female Note Status: Finalized Attending MD: [...] by the physician, the nurse and the roof service technician in the procedure room. Mental Status [...] Result * (ABNORMAL) POCT Glucose, interfaced (03/08/2024 6:08 AM EST) Glucose, POCT 131(H) 70 - 99 mg/dL 03/08/2024 6:08 AM EST [facility] Comment: The automatic vulcanizing operator has not determined the efficacy of this test in Critically ill patients. [facility] defines Critically ill patients for the purpose of blood glucose monitoring (BGM) by glucometer, as patients meeting one or more of the following criteria: Hypotension- non-ICU patients (systolic blood pressure Less than 90 mmHg) due to shock Hypotension -ICU patients (Mean Arterial Pressure (MAP) <60 mmHg or systolic blood pressure < 90 mmHg due to shock Patients receiving Vasopressors (phenylephrine, vasopressin or norepinephrine) Anasarca In all locations, BGM test results should not be relied upon in the above situations, unless these results confirmed with lab-based glucose values. Blood 03/08/2024 6:08 AM EST 03/08/2024 6:08 AM EST Oliva Armenta MD LAB POCT ORDERABLES - DE VICE Final Result [facility] [address] [place] [address], [place] from Last 3 Months or Most Recently Relevant to Health Maintenance [place] Advance Directives * Full Code (Latest Code Status on File) Date Activated Date Inactivated Comments 03/08/2024 5:33 AM 03/08/2024 11:29 AM Healthcare Agents on File Name Relationship Healthcare Agent [facility] p Communication Adolfo Lee Son Next of Kin Care Teams Director Pharmacology Relationship Specialty Start Date End Date [facility] PCP - General 11/12/22
--- OUTSIDE RECORDS SUMMARY | 2025-01-20 14:26 | XMS_ITS | Encounter Summary ---
Author Organization [employer] Address [address] [facility] [address] [place] [address] Care Team Providers Care Agricultural Scientist Name Role Phone Magda Dupree FRONT COUNTER ATTENDANT Primary Care Provider [phone] Encounter Details Date Type Department Care Team (Late Contact Info) Description 07/18/2022 Abstract [facility] [address] [place] [address] Gretchen Ye [address] [place] [address] Social History Tobacco Use Types Packs/Day Years [...] Description 02/20/2025 8:00 AM EST Office Visit [facility] [address] [place] [address] Gretchen Ye [address] [place] [address] documented as of this encounter Visit Diagnoses Not on filedocumented in this encounter Additional Health Concerns Assessment Noted Time PHQ-9 Depression Total Score: 0 05/01/19 23 2:16 PM EST documented as of this encounter Care Teams Agricultural Scientist Relationship Specialty Start Date End Date Magda Dupree FNP [address] [place] [address] PCP - General Family Medicine 11/13/21 documented as of this encounter
== END 2025-01-20 12:06 | disposition home or self-care (01) ==
LOC: HO.MAMMO 12:05
PROVIDERS: PCP Registered Nurse; Visit Provider Registered Nurse
DX: Z12.31 Encounter for screening mammogram for malignant neoplasm of breast (principal)
CPT/HCPCS: 77063; 77067